=== PATIENT | female | born 1945 | race Caucasian/White ===

== ENCOUNTER → 2019-06-26 09:04 | Outpatient (BNVA) | payer MEDICARE, OTHER, SELFPAY | PROVIDERS: Family Provider Family Medicine; Visit Provider Podiatrist Foot & Ankle Surgery | DX: M79.672 Pain in left foot (principal) | CPT/HCPCS: 73630 ==

== ENCOUNTER 2019-12-06 07:34 | Day surgery (SDC) | payer MEDICARE, OTHER, SELFPAY ==
[2019-12-05 09:50] VITALS: BMI 25.8
[2019-12-06 07:45] VITALS: BP 189/78; PULSE 70; RESP 18; TEMP 36.2; O2SAT 99
[2019-12-06] MEDS: sodium chloride 0.9% 1,000 ML 30 ML IV (07:56)
--- NOTE | 2019-12-06 08:12 | ANES.PREANE2 ---
Pre-Anesthetic Assessment Pre-Anesthetic Assessment: Height/Weight: Height 1.7 m Weight 74.843 kg Temp Pulse Resp BP Pulse Ox 97.2 F L 70 18 189/78 99 12/06/19 07:45 12/06/19 07:45 12/06/19 07:45 12/06/19 07:45 12/06/19 07:45 Preop Diagnosis: Soft tissue mass left foot unknown origin Proposed Procedure: Operation Date: 12/06/19 09:05 Proposed Procedures p Excision of soft tissue mass left foot 47087 M79.89(Left) - Jayjay Gonzalez DPM Was Beta Riana taken within 24 hours: Yes Last intake: Intake Last Liquid Date 12/05/19 Last Liquid Time 21:00 Last Solid Date 12/05/19 Last Solid Time 19:00 Social: Social History: No alcohol and No tobacco Exam: Pre-Anes Outpt Exam: alert, oriented x 3, clear to auscultation bilaterally and regular rate & rhythm Airway: Submandibular: WNL Cervical ROM: WNL MP: 2 Dentition: Full Pulmonary: Pulmonary: None reported CV/HEM: CV/HEM: HTN : : None reported Hepatic: Hepatic: None reported GI: GI: None reported Metabolic: Metabolic: None reported Musc/skel: Musc/skel: None reported Neuropsych: Neuropsych: None reported Anesthetic Plan: ASA status: 2 Anesthesia: MAC Risk of > 500 ml blood loss (7ml/kg in children): No Meds/Allergies Current Medications: Current Medications Generic Name Dose Route Start Last Admin Trade Name Freq PRN Reason Stop Dose Admin Sodium Chloride 1,000 mls @ 30 ml s/hr 12/06/19 07:45 12/06/19 07:56 Sodium Chloride 0.9% IV 12/07/19 07:44 30 mls/hr .Q24H BETTINA Administration PFSH Anesthesia PFSH: Medical History (Updated 11/28/19 @ 08:23 by Jayjay Gonzalez DPM) Hypertension Surgical History History of appendectomy Hx of hysterectomy Hx of tonsillectomy S/P foot surgery, left excision of mass Family History Mother Cancer Sister Cancer Brother Cancer Father Heart disease Denies family history of Diabetes CAD (coronary artery disease) Clotting disorder Dementia Hyperlipidemia Psychiatric illness Chronic kidney disease (CKD) Suicide Anesthesia complication Bleeding disorder Family history of premature coronary artery disease Lung disease Hypertension Stroke Social History Smoking and tobacco status: never smoked Alcohol intake: never Current occupational status: retired Data Anesthesia Cardiac Studies: No Data to Display
--- NOTE | 2019-12-06 08:55 | W.PM.OPSUD ---
Surgery/Procedure H&P Update DATE OF PROCEDURE: December 06, 2019 DATE H&P PERFORMED: 11/28/19 H&P UPDATE INFORMATION: I have reviewed H&P completed within last 30 days, I have examined patient prior to procedure, H&P to be scanned into chart and H&P is in [facility] EMR on date indicated PREOP DIAGNOSIS: Soft tissue mass left foot unknown origin PLANNED PROCEDURE: Operation Date: 12/06/19 09:05 Proposed Procedures p Excision of soft tissue mass left foot 68447 M79.89(Left) - Jayjay Gonzalez DPM
--- NOTE | 2019-12-06 09:40 | PM.OP ---
Operative Report Date of procedure: December 06, 2019 Pre-op Diagnosis: Soft tissue mass left foot unknown origin Post-op diagnosis: same Post-op Findings: See operative report Procedure Done: Excision of soft tissue mass left foot CPT code 58990. Specimens removed/disposition: Soft tissue mass with vascular origin left plantar forefoot Pathology: Soft tissue mass with vascular origin left plantar forefoot Surgeon: Jayjay Gonzalez D.P.M. Stripping Machine Operator: Brittanie Anesthesia: MAC Estimated blood loss: 2 mL Tourniquet time: 13 minutes IV fluids: None Urine output: None Complications: None Findings: See operative report Condition: stable Disposition: PACU Brief History: Ms. Davalos is a pleasant 74-year-old female with a recurrence of a painful soft tissue mass on her left plantar forefoot has been removed years ago while she lived in [place] was a benign lesion per pathology report. It has slowly returned until recently the past few months has enlarged rather quickly and has been painful to walk on she would like to have it removed again. Discussed risks including pain, bleeding, numbness and infection, damage to adjacent soft tissue structures, hypertrophied scar, keloid formation, painful scar, failure to remove mass, recurrence of soft tissue mass, need for further surgical intervention, contracture at adjacent toes and deformity. Patient is agreeable wishes to proceed. Procedure: Under mild sedation the patient was brought to the operating room and placed on the operating table in supine position. A timeout was performed. Anesthesia was then administered by the anesthesia service. Local anesthesia was injected by myself 10 cc of 0.5% Marcaine plain and a left second ray block fashion. Well-padded pneumatic tourniquet was applied to the left ankle. The left lower extremity was then scrubbed, prepped and draped utilizing normal aseptic technique. Left foot was examined a weighted with a Esmarch bandage and the tourniquet inflated to 250 mmHg. Attention was directed to the plantar aspect of the left foot at the lateral border of the second toe where a soft tissue mass was both visualized and palpated. 2 semi-elliptical converging incisions full-thickness with #15 blade was performed excising the mass full-thickness utilizing pickups and a 15 blade which was then passed from the operative field and sent to pathology for review. The mass appeared to have vascular origin potentially consistent with a hemangioma. Further sharp dissection to obtain a clean margin was performed without complication no remaining abnormality or suspect tissue was appreciated. The incision site was flushed with copious amounts of sterile saline solution. Single-layer closure was performed utilizing 4-0 Prolene in simple interrupted technique followed by dressing consisting of Adaptic, sterile 4 x 4, Kerlix Zachary wrap and postop shoe. Tourniquet was deflated and a prompt hyperemic response was noted to the distal digits of the left foot. Patient tolerated the procedure and anesthesia well and was transferred to the PACU with vital signs stable and vascular status intact. Following a period of postoperative monitoring she will be discharged home may be weightbearing with heel touch to the left lower extremity she is to elevate while at rest.
[2019-12-06 09:45] VITALS: BP 142/91; PULSE 66; RESP 18; TEMP 36.5; O2SAT 93
[2019-12-06 10:02] VITALS: BP 142/91; PULSE 66; RESP 18; TEMP 36.5; O2SAT 93
[2019-12-06 10:21] VITALS: BP 156/93; PULSE 63; RESP 18; O2SAT 95
--- NOTE | 2019-12-06 11:53 | PM.PACU ---
PACU note PACU note: VSS, good pain control. Post-Anesthesia Exam: awake Disposition: discharged
== END 2019-12-06 10:25 | disposition home or self-care (01) ==
PROVIDERS: PCP Family Medicine; Visit Provider Podiatrist Foot & Ankle Surgery
PROC: (CPT 11422; principal; 2019-12-06 08:55)
DX: D23.72 Other benign neoplasm of skin of left lower limb, including hip (principal); I10 Essential (primary) hypertension
CPT/HCPCS: 11422; 12345; 88309; C9290; J0690; J2704; J3010; J3490; J7030; L3260

== ENCOUNTER 2021-02-02 15:22 | Outpatient (CLI) | payer MEDICARE, BC, SELFPAY ==
--- NOTE | 2021-02-02 15:37 | XR_ITS ---
WS: [id number] HIP WITH PELVIS LEFT TECHNIQUE: 3 views of the left hip with pelvis CLINICAL INFORMATION: LEFT HIP PAIN COMPARISON: None. FINDINGS: Moderate degenerative arthritis left hip with joint space narrowing. Normal acetabulum. Normal femora l neck. Pubic rami appear normal. Degenerative arthritis lower lumbar spine and sacroiliac joints. No acute fractures. XR/XR hip LT 2-3V wo/w pel* [id number] IMPRESSION: Moderate degenerative arthritis left hip. No acute fractures. Tonnis classification: grade 2: small cysts in femoral head/acetabulum or moder ate joint space narrowing or moderate loss of head sphericity
--- NOTE | 2021-02-02 15:37 | XR_ITS ---
WS: [id number] ANKLE LEFT TECHNIQUE: 2 views of the left ankle CLINICAL INFORMATION: LEFT ANKLE PAIN COMPARISON: None. FINDINGS: Normal ankle mortise. Talar dome is normal. Achilles enthesophyte. No visualized fractures. Normal vi sualized soft tissues. XR/XR ankle LT 2V [id number] IMPRESSION: No acute fractures
== END 2021-02-02 15:23 | disposition home or self-care (01) ==
LOC: RAD 15:33
PROVIDERS: PCP Family Medicine; Visit Provider Family Medicine
DX: M25.572 Pain in left ankle and joints of left foot (principal); M16.12 Unilateral primary osteoarthritis, left hip
CPT/HCPCS: 73502; 73600

== ENCOUNTER 2021-02-24 14:12 | Outpatient (CLI) | payer MEDICARE, BC, SELFPAY ==
--- NOTE | 2021-02-24 14:32 | XR_ITS ---
WS: [id number] SCREENING DEXA SCAN [employer] CLINICAL INFORMATION: OSTEOPOROSIS, WELL ADULT EXAM COMPARISON: 2016 FINDINGS: The L1-L4 bone mineral density measures 1.029 g/cm2. This corresponds to a T score score of -1.3 and Z score of 0.4. Left femoral neck bone mineral density measures 0.731 g/cm2. This corresponds to a T score of -2.2 an d Z score of -0.5. Right femoral neck bone mineral density measures 0.736 g/cm2. This corresponds to a T score -2.2of an d Z score of -0.4. Mean femoral neck bone mineral density measures 0.733 g/cm2. This corresponds to a T score of -2.2 an d Z score of -0.5. XR/XR DEXA axial skeleton* [id number] IMPRESSION: Osteopenia Patient's FRAX calculated 10 year probability for major osteoporotic fracture i s 20.4 % and osteoporotic hip fracture is 7.5%.
== END 2021-02-24 14:13 | disposition home or self-care (01) ==
PROVIDERS: PCP Family Medicine; Visit Provider Family Medicine
DX: M81.0 Age-related osteoporosis without current pathological fracture (principal); Z00.00 Encounter for general adult medical examination without abnormal findings; M85.88 Other specified disorders of bone density and structure, other site
CPT/HCPCS: 77080

== ENCOUNTER 2021-04-20 08:39 | Outpatient (CLI) | payer MEDICARE, BC, SELFPAY ==
--- NOTE | 2021-04-20 08:46 | MM_ITS ---
WS: [id number] BILATERAL DIGITAL SCREENING MAMMOGRAPHY WITH CAD CLINICAL INFORMATION: SCREENING HISTORY: Screening mammogram. No current complaints. COMPARISON: TECHNIQUE: Bilateral CC and MLO views. FINDINGS: Scattered fibroglandular densities bilaterally. Stable punctate and lucent calcifications. Secretory calcifications. No suspicious focal mass, asymmetry, calcifications, or architectural distortion. No evidence of malignancy. MM/[place] [id number] IMPRESSION: BI-RADS: 2-Benign FOLLOW UP: 1 Year Follow-up Recommend return to annual screening mammography.
== END 2021-04-20 08:40 | disposition home or self-care (01) ==
LOC: RADSHAW 08:44
PROVIDERS: PCP Family Medicine; Visit Provider Family Medicine
DX: Z12.31 Encounter for screening mammogram for malignant neoplasm of breast (principal)
CPT/HCPCS: 77067

== ENCOUNTER 2021-05-24 14:46 | Outpatient (CLI) | payer MEDICARE, BC, SELFPAY ==
--- NOTE | 2021-05-24 14:54 | XR_ITS ---
WS: [id number] XR hip LT 2-3V wo/w pel* [id number] REASON FOR EXAM: LEFT HIP PAIN FINDINGS: No fracture or focal bone lesion. Mild narrowing of the left hip joint. Subchondral sclerosis and marginal osteophyte formation in the acetabulum. No change in the appearance of the hip compared to 02/02/2021. XR/XR hip LT 2-3V wo/w pel* [id number] IMPRESSION: Moderate osteoarthritis in the left hip relatively unchanged compared to 2020.
--- NOTE | 2021-05-24 14:54 | XR_ITS ---
WS: [id number] XR lumbar spine 2-3V* [id number] REASON FOR EXAM: L HIP PAIN FINDINGS: Mild rotatory scoliosis convex left. Mild endplate compression deformities of L3 and L4. Significant narrowing of the disc spaces at L1-L2, L2-L3, and L5-S1. 4 to 5 mm of anterolisthesis of L3 in relation to L2. Moderate degenerative changes in the L4-L5 and L5-S1 facet joints. XR/XR lumbar spine 2-3V* [id number] IMPRESSION: Degenerative spondylosis as above.
== END 2021-05-24 14:47 | disposition home or self-care (01) ==
LOC: RAD 14:50
PROVIDERS: PCP Family Medicine; Visit Provider Family Medicine
DX: M47.816 Spondylosis without myelopathy or radiculopathy, lumbar region (principal); M16.12 Unilateral primary osteoarthritis, left hip
CPT/HCPCS: 72100; 73502

== ENCOUNTER → 2021-11-11 11:28 | Outpatient (BNVA) | payer MEDICARE, BC, SELFPAY | PROVIDERS: PCP Family Medicine; Visit Provider Family Medicine | DX: J06.9 Acute upper respiratory infection, unspecified (principal); Z20.822 Contact with and (suspected) exposure to COVID-19 | CPT/HCPCS: 87426; 87635 ==

== ENCOUNTER 2022-09-02 18:33 | Emergency (ER) | payer MEDICARE, SELFPAY ==
[2022-09-02 18:39] VITALS: BP 181/83; PULSE 76; RESP 16; TEMP 36.4; O2SAT 93; BMI 21.9
--- NOTE | 2022-09-02 18:43 | ECG_ITS ---
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 Measurements Intervals [place] Rate: 83 P: 63 SC: 149 QRS: 44 QRSD: 80 T: 62 QT: 348 QTc: 411 Interpretive Statements SINUS RHYTHM No previous ECG available for comparison Electronically Signed On 09-03-2022 5:56:13 CDT by Elvira Heath M.D. [email or web address]
--- NOTE | 2022-09-02 20:58 | XRR_ITS ---
PROCEDURE INFORMATION: Exam: XR Chest Exam date and time: 09/02/2022 9:10 PM Age: 77 years old Clinical indication: Pain; Chest pressure; Additional info: Cp TECHNIQUE: Imaging protocol: Radiologic exam of the chest. Views: 1 view. COMPARISON: No relevant prior studies available. FINDINGS: Lungs: Unremarkable. No consolidation. Pleural spaces: Unremarkable. No pleural effusion. No pneumothorax. Heart/Mediastinum: Unremarkable. No cardiomegaly. Bones/joints: Unremarkable. XR/XR chest 1V portable [id number] IMPRESSION: No acute findings.
--- NOTE | 2022-09-02 21:04 | USR_ITS ---
PROCEDURE INFORMATION: Exam: US Abdomen, Limited; Right Upper Quadrant Exam date and time: 09/02/2022 9:37 PM Age: 77 years old Clinical indication: Abdominal pain; Acute; Additional info: Ruq pain TECHNIQUE: Imaging protocol: Real time ultrasound of the abdomen with image documentation. Limited exam focused on the right upper quadrant. COMPARISON: No relevant prior studies available. FINDINGS: Liver: Hepatic steatosis. Gallbladder: Gallbladder sludge, negative for cholecystitis. Biliary ducts: Normal. No stones. No dilation. Pancreas: Visualized pancreas is unremarkable. Right kidney: Normal. No mass. No hydronephrosis. US/US gall bladder [id number] IMPRESSION: 1. Gallbladder sludge, negative for cholecystitis. 2. Hepatic steatosis.
[2022-09-02 21:13] LABS: Basophils # 0.1 10^3/uL (0.0-0.1); Basophils % 0.5 %; Eosinophils # 0.2 10^3/uL (0.0-0.8); Eosinophils % 1.7 %; Hematocrit 43.2 % (37.0-47.0); Hemoglobin 13.6 g/dL (11.5-15.3); Lymphocytes # 1.2 10^3/uL (0.8-4.8); Mean Corpuscular HGB Conc 31.5 g/dL (30.0-36.0); Mean Corpuscular Hemoglobin 28.2 pg (28.0-34.0); Mean Corpuscular Volume 89.4 fl (81-99); Mean Platelet Volume 10.6 fL (7.4-10.4); Monocytes # 0.6 10^3/uL (0.2-0.9); Neutrophils % 79.5 %; Nucleated Red Blood Cells % 0 %; Platelet Count 272 10^3/cmm (130-400); Red Blood Count 4.83 10^6/uL (4.1-5.3); Red Cell Distribution Width 13.1 % (12.1-15.1); White Blood Count 10.1 10^3/uL (4.0-10.0)
[2022-09-02 21:14] VITALS: RESP 16
[2022-09-02] MEDS: ondansetron 2 mg/ML SDV 2 mL 4 MG IVP (21:14)
[2022-09-02] MEDS: morphine 4 mg/mL SDV 1 mL IVP (21:14)
[2022-09-02] MEDS: ketorolac 30 mg/mL INJ 15 MG IVP (21:15)
[2022-09-02 21:36] VITALS: BP 151/73; PULSE 80; RESP 16; O2SAT 96
[2022-09-02 21:36] LABS: Alanine Aminotransferase 11 U/L (0-33); Albumin Level 4.3 g/dL (3.5-5.2); Alkaline Phosphatase 75 U/L (35-105); Anion Gap 13.7 (5-19); Aspartate Amino Transferase 16 U/L (0-32); Blood Urea Nitrogen 16 mg/dL (8-23); Calcium 9.1 mg/dL (8.5-10.5); Carbon Dioxide 26 mmol/L (22-29); Chloride 105 mmol/L (98-107); Globulin 2.1 g/dL (1.3-4.6); Glucose 104 mg/dL (65-115); Lipase 20 U/L (13-60); Osmolality Calculated 293 mOsm/kg (285-295); Potassium 3.7 mmol/L (3.5-5.1); Sodium 141 mmol/L (136-145); Total Bilirubin 0.3 mg/dL (0.15-1.2); Total Protein 6.4 g/dL (6.6-8.7)
--- NOTE | 2022-09-02 22:01 | ED_ITS ---
HPI - Extremity Problem General: Chief complaint: Extremity Problem,Nontraumatic Stated complaint: abdomen pain, back shoulder blade pain Time Seen by Provider: 09/02/22 20:41 Source: patient and family History of Present Illness: 77-year-old female presenting with right-sided flank and back pain. It radiates to her suprapubic pelvis. Family notes the pains been going on for days. No vomiting. She has been nauseated. No fever. Pain also radiates to her back between her shoulder blades. She has not been short of breath. No fever. MD Complaint: other Onset (ago): day(s) (4) Pain Consistency: constant Location: other (Right flank) Associated symptoms: Deny chest pain, fever(s), rash or short of breath Review of Systems Const: Denies: fever(s) ENMT: Denies: throat pain Card: Denies: chest pain or palpitations Resp: Denies: dyspnea, productive cough or non-productive cough GI: Reports: abdominal pain and nausea; Denies: vomiting : Reports: flank pain; Denies: difficulty voiding or dysuria Musc: Reports: back pain Skin/Breast: Denies: rash PFSH ED PFSH: Medical History Anxiety Depression Hypertension Surgical History History of appendectomy Hx of hysterectomy Hx of tonsillectomy S/P foot surgery, left excision of mass Family History Mother Cancer Sister Cancer Brother Cancer Father Heart disease Denies family history of Diabetes CAD (coronary artery disease) Clotting disorder Dementia Hyperlipidemia Psychiatric illness Chronic kidney disease (CKD) Suicide Anesthesia complication Bleeding disorder Family history of premature coronary artery disease Lung disease Hypertension Stroke Social History Smoking and tobacco status: never smoked Alcohol intake: never Substance/Drug Use: never Current occupational status: retired Physical Exam Const: COMMON NORMALS: no acute distress and alert GENERAL APPEARANCE: cooperative and frail appearing (Mildly); not ill appearing ORIENTATION/CONSCIOUSNESS: Yes oriented to person and Yes o riented to place HENMT: COMMON NORMALS: normocephalic, atraumatic and Normal external nose present HEAD & SCALP: normocephalic and atraumatic FACE & SINUS: normal facial exam and face symmetric NOSE: Normal external nose present Eye: COMMON NORMALS: Equal, round and reactive pupils present and EOMs intact bilaterally PUPIL: Yes Equal, round and reactive pupils present Neck/C-Spine: GENERAL: Yes trachea midline Chest: CHEST: Yes Symmetrical chest wall rise Resp: COMMON NORMALS: normal respiratory effort, No retractions, No use of accessory muscles and clear to auscultation bilaterally AUSCULTATION: clear to auscultation bilaterally Cardio: COMMON NORMALS: regular rate and regular rhythm RATE: regular rate RHYTHM: regular rhythm GI: COMMON NORMALS: Normal to inspection, nondistended, normoactive bowel sounds present PALPATION: Yes Tenderness to palpation present (GI) Details: RUQ Extremity: COMMON NORMALS: no pedal edema Neuro: LATOYA COMA SCALE: document GCS findings SENSORIUM/ORIENTATION: Yes alert, Yes oriented to person and Yes oriented to place SENSORY EXAM: Yes extremities (intact) Psych: COMMON NORMALS: speech normal SPEECH: Yes normal speech Skin: COMMON NORMALS: no rashes or lesions noted GENERAL SKIN EXAM: no rashes or lesions noted Course Vital Signs: Vital signs: Vital Signs Temperature 97.6 F 09/02/22 23:51 Pulse Rate 83 09/02/22 23:51 Respiratory Rate 16 09/02/22 23:51 Blood Pressure 151/73 09/02/22 23:51 Pulse Oximetry 95 09/02/22 23:51 Oxygen Delivery Me thod Room Air 09/02/22 18:39 MDM - Extremity (Nontraumatic) Medical Decision Making Vitals are stable. She is afebrile. White blood cell count is 10. BMP is not remarkable. CBC otherwise not remarkable. C-reactive protein is 3. Liver enzymes are normal including a total bili of 0.3. Urinalysis shows 2+ leukocyte Estrace but without pyuria or significant hematuria. CT shows cholelithiasis. Gallbladder ultrasound is negative for cholecystitis or biliary dilatation. Patient is tender to her right upper quadrant, consistent with biliary colic. She will be treated for this. Close outpatient follow-up. They know to return for worsening symptoms. Lab Data 09/02/22 21:04 09/02/22 21:04 Radiology Impressions Chest X-Ray 09/02/22 20:58 IMPRESSION: No acute findings. Gallbladder Ultrasound 09/02/22 21:04 IMPRESSION: 1. Gallbladder sludge, negative for cholecystitis. 2. Hepatic steatosis. Abdomen/Pelvis CT 09/02/22 22:12 IMPRESSION: 1. Negative for acute inflammatory process in the abdomen or pelvis. 2. Bibasilar atelectasis versus infiltrate. 3. Hepatic steatosis. 4. Left hepatic lobe cyst. 5. Cholelithiasis. 6. Right ovary 3.7 cm cyst, likely follicular in nature. 7. Diverticulosis without diverticulitis. Laboratory Results WBC 10.1 10^3/uL (4.0-10.0) H 09/02/22 21:04 RBC 4.83 10^6/uL (4.1-5.3) 09/02/22 21:04 Hgb 13.6 g/dL (11.5-15.3) 09/02/22 21:04 Hct 43.2 % (37.0-47.0) 09/02/22 21:04 MCV 89.4 fl (81-99) 09/02/22 21:04 MCH 28.2 pg (28.0-34.0) 09/02/22 21:04 MCHC 31.5 g/dL (30.0-36.0) 09/02/22 21:04 RDW 13.1 % (12.1-15.1) 09/02/22 21:04 Plt Count 272 10^3/cmm (130-400) 09/02/22 21:04 MPV 10.6 fL (7.4-10.4) H 09/02/22 21:04 Neut % (Auto) 79.5 % 09/02/22 21:04 Lymph % (Auto) 12.0 % 09/02/22 21:04 [place] % (Auto) 6.0 % 09/02/22 21:04 Eos % (Auto) 1.7 % 09/02/22 21:04 Baso % (Auto) 0.5 % 09/02/22 21:04 Neut # (Auto) 8.00 10^3/uL (1.8-7.7) H 09/02/22 21:04 Lymph # (Auto) 1.2 10^3/uL (0.8-4.8) 09/02/22 21:04 [place] # (Auto) 0.6 10^3/uL (0.2-0.9) 09/02/22 21:04 Eos # (Auto) 0.2 10^3/uL (0.0-0.8) 09/02/22 21:04 Baso # (Auto) 0.1 10^3/uL (0.0-0.1) 09/02/22 21:04 Nucleated RBC % (auto) 0 % 09/02/22 21:04 Nucleated RBCs # 0.0 /100WBC 09/02/22 21:04 Sodium 141 mmol/L (136-145) 09/02/22 21:04 Potassium 3.7 mmol/L (3.5-5.1) 09/02/22 21:04 Chloride 105 mmol/L (98-107) 09/02/22 21:04 Carbon Dioxide 26 mmol/L (22-29) 09/02/22 21:04 Anion Gap 13.7 (5-19) 09/02/22 21:04 BUN 16 mg/dL (8-23) 09/02/22 21:04 Creatinine 0.5 mg/dL (0.5-0.9) 09/02/22 21:04 GFR Calculation Not Reportable 09/02/22 21:04 Glucose 104 mg/dL (65-115) 09/02/22 21:04 Calculated Osmolality 293 mOsm/kg (285-295) 09/02/22 21:04 Calcium 9.1 mg/dL (8.5-10.5) 09/02/22 21:04 Total Bilirubin 0.3 mg/dL (0.15-1.2) 09/02/22 21:04 AST 16 U/L (0-32) 09/02/22 21:04 ALT 11 U/L (0-33) 09/02/22 21:04 Alkaline Phosphatase 75 U/L (35-105) 09/02/22 21:04 Troponin T Baseline < 6 ng/L (0-10) 09/02/22 21:04 C-Reactive Protein 3.0 mg/L (0.0-4.9) 09/02/22 21:04 Total Protein 6.4 g/dL (6.6-8.7) L 09/02/22 21:04 Albumin 4.3 g/dL (3.5-5.2) 09/02/22 21:04 Globulin 2.1 g/dL (1.3-4.6) 09/02/22 21:04 Lipase 20 U/L (13-60) 09/02/22 21:04 Urine Color Yellow (Yellow) 09/02/22 21:33 Urine Appearance Hazy (CLEAR) A 09/02/22 21:33 Urine pH 6.5 (5-7) 09/02/22 21:33 Ur Specific [place] 1.020 (1.005-1.030) 09/02/22 21:33 Urine Protein Neg (Negative) 09/02/22 21:33 Urine Glucose (UA) Norm (Normal) 09/02/22 21:33 Urine Ketones Negative (Negative) 09/02/22 21:33 Urine Blood Trace (Negative) H 09/02/22 21:33 Urine Nitrate Negative (Negative) 09/02/22 21:33 Urine Bilirubin Neg (Negative) 09/02/22 21:33 Urine Urobilinogen Norm mg/dL (Negative) 09/02/22 21:33 Ur Leukocyte Esterase 2+ (Negative) H 09/02/22 21:33 Urine RBC 0-4 /hpf (0-2) H 09/02/22 21:33 Urine WBC 0-4 /hpf (0-5) H 09/02/22 21:33 Ur Squamous Epith Cells 0-4 /hpf (0-5) H 09/02/22 21:33 Amorphous Sediment Not Reportable 09/02/22 21:33 Urine Bacteria 2+ /hpf (NONE) H 09/02/22 21:33 Discharge Plan Discharge Patient Disposition: Home Clinical Impression: Biliary colic Condition: Stable Prescriptions: New ketorolac 10 mg tablet 10 mg PO TID PRN (Reason: pain) Qty: 10 0RF No Action metoprolol succinate 50 mg tablet extended release 24 hr 50 mg PO DAILY metoprolol succinate 25 mg tablet extended release 24 hr 12.5 mg PO .hs escitalopram oxalate [Lexapro] 10 mg tablet 10 mg PO DAILY Qty: 30 11RF [place] 5-325 mg tablet 1 tab PO Q4H Qty: 20 0RF Discharge Orders: Discharge ED (Routine); Ordered 09/02/22 Ordered By: Samir Cazares Referrals: Jose Eduardo Reveles MD [Primary Care Provider] - 1-3 days Patient Instructions: Biliary Colic (ED), Abdominal Pain (ED), Opioid Safety, Pain Management Activity Restrictions/Additional Instructions: Take medication prescribed scheduled for the next 24 hours. Follow a liquid diet for 24 hours, then slowly add back in solid food. Return for fever greater than 100, vomiting liquids or medications, worsening pain despite treatment, other concerning symptoms. 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
[2022-09-02 22:07] LABS: Add Urine Microscopic? YES; Bilirubin Urine Neg (Negative); Blood Urine Trace (Negative); Glucose Urine UA Norm (Normal); Ketones Urine Negative (Negative); Leukocyte Esterase Urine 2+ (Negative); Nitrate Urine Negative (Negative); Protein Urine Neg (Negative); Urine Appearance Hazy (CLEAR); Urine Color Yellow (Yellow); Urobilinogen Urine Norm (Negative); pH Urine 6.5 (5-7)
--- NOTE | 2022-09-02 22:12 | CTR_ITS ---
PROCEDURE INFORMATION: Exam: CT Abdomen And Pelvis With Contrast Exam date and time: 09/02/2022 10:26 PM Age: 77 years old Clinical indication: Abdominal pain; Flank; Right; Prior surgery; Surgery date: 6+ months; Surgery type: Complete hysterectomy; Additional info: Right flank pain TECHNIQUE: Imaging protocol: Computed tomography of the abdomen and pelvis with contrast. Radiation optimization: All CT scans at this facility use at least one of these dose optimization techniques: automated exposure control; mA and/or kV adjustment per patient size (includes targeted exams where dose is matched to clinical indication); or iterative reconstruction. Contrast material: OMNI 350; Contrast volume: 100 ml; Contrast route: INTRAVENOUS (IV); REPORTING DATA: Count of CT and Cardiac NM exams in prior 12 months: This patient has received 0 known CTs and 0 known cardiac nuclear medicine studies in the 12 months prior to the current study. COMPARISON: CR XR hip LT 2-3V wo/w pel* [id number] 05/24/2021 3:25 PM RADIATION DOSE METRICS: Total DLP (mGy-cm): 414.92 FINDINGS: Lungs: Bibasilar atelectasis versus infiltrate. Liver: Hepatic steatosis. Left hepatic lobe cyst. Gallbladder and bile ducts: Cholelithiasis. Pancreas: Normal. No ductal dilation. Spleen: Normal. No splenomegaly. Adrenal glands: Normal. No mass. Kidneys and ureters: Normal. No hydronephrosis. Stomach and bowel: Diverticulosis without diverticulitis. Appendix: No evidence of appendicitis. Intraperitoneal space: Unremarkable. No free air. No significant fluid collection. Vasculature: Unremarkable. No abdominal aortic aneurysm. Lymph nodes: Unremarkable. No enlarged lymph nodes. Urinary bladder: Unremarkable as visualized. Reproductive: Right ovary 3.7 cm cyst, likely follicular in nature. Bones/joints: Unremarkable. No acute fracture. Soft tissues: Unremarkable. CT/CT abdomen pelvis w con* [id number] IMPRESSION: 1. Negative for acute inflammatory process in the abdomen or pelvis. 2. Bibasilar atelectasis versus infiltrate. 3. Hepatic steatosis. 4. Left hepatic lobe cyst. 5. Cholelithiasis. 6. Right ovary 3.7 cm cyst, likely follicular in nature. 7. Diverticulosis without diverticulitis.
[2022-09-02 22:13] LABS: Troponin(5th) Baseline < 6 ng/L (0-10)
[2022-09-02 22:28] LABS: RBC Urine 0-4 /hpf (0-2); Squamous Epithelial Cell Urine 0-4 /hpf (0-5); WBC Urine 0-4 /hpf (0-5)
[2022-09-02 22:29] LABS: Add Urine Culture? Yes; Bacteria Urine 2+ /hpf
[2022-09-02] MEDS: iohexol 350 mg/mL 500 mL Btl (per mL) IV (22:30)
[2022-09-02 22:41] VITALS: PULSE 83; RESP 16; O2SAT 95
[2022-09-02 23:51] VITALS: BP 151/73; PULSE 83; RESP 16; TEMP 36.4; O2SAT 95
== END 2022-09-02 23:52 | disposition home or self-care (01) ==
PROVIDERS: Emergency Provider Emergency Medicine; PCP Family Medicine
DX: K80.20 Calculus of gallbladder without cholecystitis without obstruction (principal); I10 Essential (primary) hypertension
CPT/HCPCS: 71045; 74177; 76705; 80053; 81001; 83690; 84484; 85025; 86140; 87086; 93005; 96374; 96375; 99285; J1885; J2270; J2405; Q9967

== ENCOUNTER 2023-09-30 18:21 | Outpatient (CLI) | payer MEDICARE, SELFPAY ==
[2023-09-30 18:39] LABS: Specific Gravity, Urine 1.005 (1.005-1.030); Urine Appearance Cloudy (CLEAR); Urine Color Yellow (Yellow); pH Urine 7 (5-7)
[2023-09-30 18:40] LABS: Add Urine Microscopic? YES; Bacteria Urine 1+ /hpf; Bilirubin Urine Neg (Negative); Blood Urine 2+ (Negative); Glucose Urine UA Norm (Normal); Ketones Urine 1+ (Negative); Leukocyte Esterase Urine 2+ (Negative); Mucus Urine TRACE /hpf; Nitrate Urine Negative (Negative); Protein Urine Neg (Negative); RBC Urine 0-4 /hpf (0-2); Urobilinogen Urine Neg (Negative); WBC Urine 15-25 /hpf (0-5)
== END 2023-09-30 18:22 | disposition home or self-care (01) ==
PROVIDERS: PCP Family Medicine; Visit Provider Family Medicine
DX: N39.0 Urinary tract infection, site not specified (principal)
CPT/HCPCS: 81001; 87086

== ENCOUNTER 2024-02-03 13:04 | Outpatient (CLI) | payer MEDICARE, SELFPAY ==
[2024-02-03 13:21] LABS: Bilirubin Urine Negative (Negative); Blood Urine Negative (Negative); Glucose Urine UA Negative (Normal); Ketones Urine Negative (Negative); Leukocyte Esterase Urine Negative (Negative); Nitrate Urine Negative (Negative); Protein Urine Negative (Negative); Specific Gravity, Urine 1.006 (1.005-1.030); Urine Appearance Clear (CLEAR); Urine Color Yellow (Yellow); Urobilinogen Urine 0.2 mg/dL (Negative); pH Urine 7.5 (5-7)
[2024-02-03 13:26] LABS: Add Urine Microscopic? YES; Bacteria Urine None Seen /hpf; Hyaline Casts Urine 0-4 /lpf; RBC Urine 0-2 /hpf (0-2); Squamous Epithelial Cell Urine 0-5 /hpf (0-5); WBC Urine 0-5 /hpf (0-5)
== END 2024-02-03 13:05 | disposition home or self-care (01) ==
LOC: LAB 13:07
PROVIDERS: PCP Family Medicine; Visit Provider Family Medicine
DX: N39.0 Urinary tract infection, site not specified (principal)
CPT/HCPCS: 81001; 87086

== ENCOUNTER 2024-04-04 09:23 | Outpatient (CLI) | payer MEDICARE, SELFPAY ==
[2024-04-04 09:42] LABS: Bilirubin Urine Negative (Negative); Blood Urine Negative (Negative); Glucose Urine UA Negative (Normal); Ketones Urine Negative (Negative); Leukocyte Esterase Urine Negative (Negative); Nitrate Urine Negative (Negative); Protein Urine Negative (Negative); Specific Gravity, Urine 1.005 (1.005-1.030); Urine Appearance Clear (CLEAR); Urine Color Yellow (Yellow); Urobilinogen Urine 0.2 mg/dL (Negative)
[2024-04-04 09:48] LABS: Add Urine Microscopic? YES; Bacteria Urine None Seen /hpf; Hyaline Casts Urine 0-4 /lpf; RBC Urine 0-2 /hpf (0-2); Squamous Epithelial Cell Urine 0-5 /hpf (0-5); WBC Urine 0-5 /hpf (0-5)
== END 2024-04-04 09:24 | disposition home or self-care (01) ==
LOC: LAB 09:25
PROVIDERS: PCP Family Medicine; Visit Provider Family Medicine
DX: N39.0 Urinary tract infection, site not specified (principal)
CPT/HCPCS: 81001; 87086

== ENCOUNTER 2024-07-28 08:51 | Outpatient (CLI) | payer MEDICARE, SELFPAY ==
[2024-07-28 09:30] LABS: Basophils # 0.1 10^3/uL (0.0-0.1); Basophils % 1.2 %; Eosinophils # 0.3 10^3/uL (0.0-0.8); Eosinophils % 5.2 %; Hematocrit 40.7 % (36-47); Lymphocytes # 1.3 10^3/uL (0.8-4.8); Lymphocytes % 22.8 %; Mean Corpuscular HGB Conc 31.7 g/dL (30-55); Mean Corpuscular Hemoglobin 28.4 pg (27-33); Mean Corpuscular Volume 89.6 fl (85-98); Mean Platelet Volume 11.1 fL (7.4-10.4); Monocytes # 0.5 10^3/uL (0.2-0.9); Monocytes % 8.7 %; Neutrophils # 3.57 10^3/uL (1.8-7.7); Neutrophils % 61.8 %; Nucleated Red Blood Cells % 0 %; Platelet Count 236 10^3/cmm (157-399); Red Blood Count 4.54 10^6/uL (3.85-5.65); Red Cell Distribution Width 13.2 % (12.1-15.1); White Blood Count 5.78 10^3/uL (3.29-11.43)
[2024-07-28 09:51] LABS: Alanine Aminotransferase 9 U/L (0-33); Albumin Level 3.7 g/dL (3.5-5.2); Alkaline Phosphatase 83 U/L (35-105); Anion Gap 12.1 (5-19); Aspartate Amino Transferase 18 U/L (0-32); Blood Urea Nitrogen 15 mg/dL (8-23); Calcium 8.7 mg/dL (8.5-10.5); Carbon Dioxide 27 mmol/L (22-29); Chloride 107 mmol/L (98-107); Chol HDL Ratio 4.63 mg/dL (0.0-4.40); Cholesterol 236 mg/dL (0-200); Globulin 2.4 g/dL (1.3-4.6); Glucose 95 mg/dL (65-115); HDL Cholesterol 51 mg/dL (60-100); LDL Cholesterol Calculated 157 mg/dL (50-129); LDL HDL Ratio 3.08 RATIO (0.00-3.22); Osmolality Calculated 295 mOsm/kg (285-295); Potassium 4.1 mmol/L (3.5-5.1); Sodium 142 mmol/L (136-145); Total Bilirubin 0.5 mg/dL (0.15-1.2); Total Protein 6.1 g/dL (6.6-8.7); Triglycerides 141 mg/dL (0-150)
== END 2024-07-28 08:52 | disposition home or self-care (01) ==
LOC: LAB 08:56
PROVIDERS: PCP Family Medicine; Visit Provider Family Medicine
DX: I10 Essential (primary) hypertension (principal); E11.9 Type 2 diabetes mellitus without complications
CPT/HCPCS: 80053; 80061; 85025

== ENCOUNTER 2024-08-11 14:22 | Outpatient (CLI) | payer MEDICARE, SELFPAY ==
[2024-08-11 14:58] LABS: Bacteria Urine None Seen /hpf; Hyaline Casts Urine 0-4 /lpf; RBC Urine 0-2 /hpf (0-2); Squamous Epithelial Cell Urine 0-5 /hpf (0-5); WBC Urine 0-5 /hpf (0-5)
[2024-08-11 15:14] LABS: Urine Color Yellow (Yellow)
[2024-08-11 15:15] LABS: Add Urine Microscopic? YES; Bilirubin Urine Neg (Negative); Blood Urine Neg (Negative); Glucose Urine UA Norm (Normal); Ketones Urine Negative (Negative); Leukocyte Esterase Urine Trace (Negative); Nitrate Urine Negative (Negative); Protein Urine Neg (Negative); Specific Gravity, Urine 1.012 (1.005-1.030); Urine Appearance Clear (CLEAR); pH Urine 7 (5-7)
[2024-08-11 15:16] LABS: Add Urine Culture? No
== END 2024-08-11 14:23 | disposition home or self-care (01) ==
LOC: LAB 14:24
PROVIDERS: PCP Family Medicine; Visit Provider Family Medicine
DX: R44.1 Visual hallucinations (principal); N39.0 Urinary tract infection, site not specified; R44.0 Auditory hallucinations
CPT/HCPCS: 81001; 87086

== ENCOUNTER 2025-01-16 10:29 | Emergency (ER) | payer MEDICARE, SELFPAY ==
--- NOTE | 2025-01-16 10:25 | ECG_ITS ---
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 Measurements Intervals [place] Rate: 57 P: 49 [place]: 160 QRS: -6 QRSD: 86 T: 14 QT: 436 QTc: 427 Interpretive Statements SINUS BRADYCARDIA Compared to ECG 09/02/2022 18:46:59 Sinus rhythm no longer present Electronically Signed On 01-16-2025 18:48:58 CDT by Aman Yates M.D. [email or web address]
--- NOTE | 2025-01-16 10:25 | CTR_ITS ---
PROCEDURE INFORMATION: Exam: CT Head Without Contrast Exam date and time: 01/16/2025 10:41 AM Age: 79 years old Clinical indication: Injury or trauma; Fall; Blunt trauma (contusions or hematomas); Without loss of consciousness; Additional info: Fall. PT has hematoma to left parietal region TECHNIQUE: Imaging protocol: Computed tomography of the head without contrast. Radiation optimization: All CT scans at this facility use at least one of these dose optimization techniques: automated exposure control; mA and/or kV adjustment per patient size (includes targeted exams where dose is matched to clinical indication); or iterative reconstruction. COMPARISON: No prior relevant exam for comparison RADIATION DOSE METRICS: Total DLP (mGy-cm): 1150.38 FINDINGS: Brain: . No acute intracranial hemorrhage or abnormal intracranial mass effect is identified. Mild chronic appearing small-vessel ischemic changes are seen in both cerebral hemispheres and likely within the henry. No subdural collections are identified. Cerebral ventricles: Size within normal range for age. No midline shift. Paranasal sinuses: Visualized portions of paranasal sinuses are well aerated. Mastoid air cells: Visualized portions of mastoid sinuses are not opacified. Bones: No acute fracture of the cranium identified.. Soft tissues: There is a prominent left parietal scalp hematoma. CT/CT head wo con* [id number] IMPRESSION: No acute intracranial hemorrhage or mass effect.
[2025-01-16 10:29] VITALS: BMI 23.5
[2025-01-16 10:35] VITALS: BP 166/83; PULSE 59; RESP 16; TEMP 36.4; O2SAT 92
--- OUTSIDE RECORDS SUMMARY | 2025-01-16 10:35 | XMS_ITS | Encounter Summary ---
Author Organization [facility] Address [address] [place] [address] Care Team Providers Care Clinical Science Liaison Name Role Phone Unavailable Primary Care Provider Unavailabl e Encounter Details Date Type Department Care Team (Latest Contact Info) Description 06/27/1997 Outpatient Historical [facility] Breast [place] [facility] Persaud Karlee [address] 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
--- OUTSIDE RECORDS SUMMARY | 2025-01-16 10:35 | XMS_ITS | Clinical Summary ---
Author Organization [email or web address] Address [address] [place]: Epic Prelude ADT MESHA [place] [address] Care Team Providers Care Ict Systems Test Engineer Name Role Phone Unavailable Primary Care Provider Unavailabl e Social History Tobacco Use Types Packs/Day Years Used Date Smoking Tobacco: Never Assessed Comments Unknown Sex and Gender Information Value Date Recorded Sex Assigned at Not on file Legal Sex Female 6:38 AM MELT SUPERINTENDANT Gender Identity Not on file Sexual Orientation Not on file Plan of Treatment Health Maintenance Due Date Last Done Comments DTAP/TDAP/TD VACCINES (1 - Tdap) 02/21/1964 PNEUMOCOCCAL VACCINE 50+ YEARS (1 of 1 - PCV) 02/20/19 95 ZOSTER VACCINE (1 of 2) 1995 OSTEOPOROSIS SCREENING 2010 RSV VACCINE (60+ or ) (1 - 1-dose 75+ series) 02/21/2020 INFLUENZA VACCINE (#1) 2024
--- OUTSIDE RECORDS SUMMARY | 2025-01-16 10:35 | XMS_ITS | Encounter Summary ---
Author Organization [facility] Address [address] [place] [address] Care Team Providers Care Health Sciences Dean Name Role Phone Unavailable Primary Care Provider Unavailabl e Encounter Details Date Type Department Care Team (Late st Contact Info) Description 06/27/1997 Outpatient Historical [facility] OBLILLIANN-Cedric Coburnnn Karlee [address] [place] [phone] Social History Tobacco Use Types Packs/Day Years Used Date Smoking Tobacco: Never Assessed Comments Unknown Sex and Gender Information Value Date Recorded Sex Assigned at Not on file 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
--- OUTSIDE RECORDS SUMMARY | 2025-01-16 10:35 | XMS_ITS | Encounter Summary ---
Author Organization [facility] Address [address] [place] [address] Care Team Providers Care Wrapper Leaf Inspector Name Role Phone Satish Moctezuma MD Primary Care Provider [phone] Encounter Details Date Type Department Care Team (Late st Contact Info) Description 01/14/2025 External Device Data [facility] ABSTRACTION Provider, Abstract NO ADDRESS ON FILE Social History Tobacco Use Types Packs/Day Years Used Date Smoking Tobacco: Never Smokeless Tobacco: Former Comments:Quit cigarettes in the s. Did smoke 1 ppd. Alcohol Use Standard Drinks/Week Comments Never 0 (1 standard drink = 0.6 oz pur e alcohol) Feeling Safe Answer Date Recorded Are you in a relationship wi th someone who hurts you emotionally and/or physically? No 01/24/2024 Food Insecurity Answer Date Recorded Patient needs follow up regardin 08/20/2024 Transportation Needs Answer Date Record ed Patient needs follow up regardin 08/20/2024 Housing Stability Answer Date Recorded Social/Environmental Concerns No concerns Utility Needs Answer Date Recorded Patient needs follow up regardin 08/20/2024 Comments Unknown Sex and Gender Information Value Date Recorded Sex Assigned at Not on file Legal Sex Female 5:21 AM SOLUTIONS SPECIALIST Gender Identity Not on file Sexual Orientation Not on file documented as of this encounter Plan of Treatment Not on file documented as of this encounter Visit Diagnoses Not on filedocumented in this encounter Care Teams Wrapper Leaf Inspector Relationship Specialty Start Date End Date Satish Moctezuma MD [address] [place] [address] PCP - General Family Practice 01/29/24 documented as of this encounter
--- OUTSIDE RECORDS SUMMARY | 2025-01-16 10:35 | XMS_ITS | Encounter Summary ---
Author Organization [facility] Address [address] [place] [address] Care Team Providers Care Facilities Maintenance Engineer Name Role Phone Unavailable Primary Care Provider Unavailabl e Encounter Details Date Type Department Care Team (Late st Contact Info) Description 04/26/2002 Outpatient [facility] Breast Center [facility] [address] [place], [place] [id number] Shani Arshad MD [address] [place] [address] [place] [phone] SCREENING MAMM-MAILG NEOPL-OTHER (Primary Dx) Social History Tobacco Use Types Packs/Day Years Used Date Smoking Tobacco: Never Assessed Comments Unknown Sex and Gender Information Value Date Recorded Sex Assigned at Not on file 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
--- OUTSIDE RECORDS SUMMARY | 2025-01-16 10:35 | XMS_ITS ---
Author Name JEREMY SHORT Address [address] [place] [address] Phone Organization [facility] Address [address] [place] [address] Phone Care Team Providers Care Chemical Engineering Teacher Name Role Phone MD JEREMY SHORT Unavailable [phone] ALLERGIES, ADVERSE REACTIONS AND ALERTS Allergy Name Allergy Date Allergy Status Allergy Severity Allergy Reaction NO KNOWN DRUG ALLERGIES MEDICATIONS RxNorm Brand Name Prescription Ordered Value Order Unit Start Date Date Status Fill Status Indications [id number] donepezi l 5 mg tablet SIG: donepezil 5 mg oral tablet, 30 days, Dispense #30 Tablet, 12 Refills, Directions: One po daily with dinner 30 tablet 2023 Current [id number] melatoni n 5 mg tablet SIG: melatonin 5 mg oral tablet, 30 days, Dispense #30 Tablet, 6 Refills, Directions: One po qhs 30 tablet 2024 Current completed PROBLEMS Problem Code Problem Description Problem Status Problem Da te Problem End Date S46-Aebbnqnza (primary) hypertension Essential (primary) hypertension Current 2023 F03.918-UNSP DEMENTIA, UNSP SEVERITY, WITH OTHER BEHAVIORAL DISTURB UNSP DEMENTIA, UNSP SEVERITY, WITH OTHER BEHAVIORAL DISTURB Current 2023 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 Current 05/10/2023 R40.4-Transient alteration of awareness Transient alteration of awareness Current 08/29/2024 PROCEDURES Procedure Description Date Notes NO PROCEDURES PERFORMED ASSESSMENTS Assessment None PLAN OF TREATMENT Assessment Planned Activity LOINC Planned Michael e None CONSULTATION NOTE Note Author Date None HISTORY AND PHYSICAL NOTE Note Author Date None PROGRESS NOTE Note Author Date None DISCHARGE SUMMARY Note Author Date None CHIEF COMPLAINT AND REASON FOR VISIT FUNCTIONAL STATUS Functional or Cognitive Find ing None MENTAL STATUS Cognitive Finding None ENCOUNTERS Encounter Type Provider Diagnoses Start Date Location Disc harged to None SOCIAL HISTORY Social Status Observation Unknown if ever smoked Sex: Female CARE TEAM INFORMATION Chemical Engineering Teacher Provider ID Role Location Phone JEREMY SHORT [phone] [address], [place] [address] INSURANCE PROVIDERS Payer Name Policy type / Coverage type Covered republican ID Policy [facility] Health Insurance [id number] SELF
--- OUTSIDE RECORDS SUMMARY | 2025-01-16 10:35 | XMS_ITS | Encounter Summary ---
Author Organization [facility] Address [address] [place] [address] Care Team Providers Care Personal Care Service Provider Name Role Phone Unavailable Primary Care Provider Unavailabl e Encounter Details Date Type Department Care Team (Latest Contact Info) Description 03/02/2000 Outpatient Historical [facility] Breast Center Cedric Persaud Karlee [address] 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
--- OUTSIDE RECORDS SUMMARY | 2025-01-16 10:35 | XMS_ITS | Encounter Summary ---
Author Organization [facility] Address [address] [place] [address] Care Team Providers Care Spin Table Operator Name Role Phone Satish Moctezuma MD Primary Care Provider [phone] Encounter Details Date Type Department Care Team [...] on file Legal Sex Female 5:21 AM CLEARANCE REP Gender Identity Not on file Sexual Orientation Not on file documented as of this encounter Plan of Treatment Not on file documented as of this encounter Visit Diagnoses Not on filedocumented in this encounter Care Teams Spin Table Operator Relationship Specialty Start Date End Date Satish Moctezuma MD [address] [place] [address] PCP - General Family Practice 01/29/24 documented as of this encounter
--- OUTSIDE RECORDS SUMMARY | 2025-01-16 10:35 | XMS_ITS | Encounter Summary ---
Author Organization [facility] Address [address] [place] [address] Care Team Providers Care Car Retarder Operator Name Role Phone Unavailable Primary Care Provider Unavailabl e Encounter Details Date Type Department Care Team (Late st Contact Info) Description 03/02/2000 Outpatient Historical [facility] OBGYN-Cedric Catron Karlee [address] [place] [address] Shani Arshad MD [address] [facility] [place] [address] [place] [address] Gynecologic examination (Primary Dx) Social History Tobacco Use Types Packs/Day Years Used Date Smoking Tobacco: Never Assessed Comments Unknown Sex and Gender Information Value Date Recorded Sex Assigned at Not on file Legal Sex Female 6:38 AM DIRECTOR STRATEGIC ACCOUNT MANAGEMENT Gender Identity Not on file Sexual Orientation Not on file documented as of this encounter Plan of Treatment Not on file documented as of this encounter Visit Diagnoses Diagnosis Gynecologic examination- Primary Gynecological examination documented in this encounter
--- OUTSIDE RECORDS SUMMARY | 2025-01-16 10:35 | XMS_ITS | Encounter Summary ---
Author Organization [facility] Address [address] [place] [address] Care Team Providers Care Perfect Binder Setter Name Role Phone Unavailable Primary Care Provider Unavailabl e Encounter Details Date Type Department Care Team (Latest Contact Info) Description 02/23/1999 Outpatient Historical [facility] Breast [facility] Cedric Persaud Karlee [address] 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
--- OUTSIDE RECORDS SUMMARY | 2025-01-16 10:35 | XMS_ITS | Encounter Summary ---
Author Organization [facility] Address [address] [place] [address] Care Team Providers Care Director Medical Affairs Name Role Phone Unavailable Primary Care Provider Unavailabl e Encounter Details Date Type Department Care Team (Late st Contact Info) Description 02/23/1999 Outpatient Historical [facility] OBGYN-Cedric [place] Karlee [address] [place] [phone] Shani Arshad MD [address] [facility] [place] [address] [place] [address] Gynecologic examination (Primary Dx) Social History Tobacco Use Types Packs/Day Years Used Date Smoking Tobacco: Never Assessed Comments Unknown Sex and Gender Information Value Date Recorded Sex Assigned at Not on file Legal Sex Female 6:38 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
--- OUTSIDE RECORDS SUMMARY | 2025-01-16 10:35 | XMS_ITS | Clinical Summary ---
Author Organization [facility] Address [address] [facility] [address] [place] [address] Phone Care Team Providers Care Dish Cloth Inspector Name Role Phone Satish Moctezuma MD Primary Care Provider [phone] Allergies No known active allergies Medications metoprolol succinate (TOPROL XL) 50 mg Extended Release 24 hour tablet Take 50 mg by mouth daily. Daily at 8 am Active metoprolol succinate (TOPROL XL) 25 mg Extended Release 24 hour tablet Take 25 mg by mouth late in the day. Active donepeziL (ARICEPT) 5 mg tablet Take 5 mg by mouth daily with supper. Active VITAMIN B COMPLEX ORAL Take 1 Capsule by mouth daily. Active acetaminophen (TYLENOL) 325 mg tablet Take 325 mg by mouth every 6 hours as needed for Pain, Mild / Temperature. Active escitalopram oxalate (LEXAPRO) 20 mg tablet Take 1 Tablet (20 mg) by mouth daily. 30 Tablet 1 01/27/2024 Active Active Problems Problem Noted Date Diagnosed Date Syncope 01/24/2024 Seizure-like activity 01/24/2024 UTI (urinary tract infection) 01/24/2024 Dementia 01/24/2024 Primary hypertension 01/24/2024 Encounters Date Type Department Care Team Description 01/14/2025 External Device Data [facility] ABSTRACTION Provider, Abstract 01/14/2025 External Device Data [facility] ABSTRACTION Provider, Abstract 12/31/2024 External Device Data [facility] ABSTRACTION Provider, Abstract 12/04/2024 External Device Data [facility] ABSTRACTION Provider, Abstract 11/19/2024 External Device Data [facility] ABSTRACTION Provider, Abstract from Last 3 Months Family History Relation Name Status Comments Father Mother Social History Tobacco Use Types Packs/Day Years [...] on file Legal Sex Female 5:21 AM COMMUNITY SERVICE DIRECTOR Gender Identity Not on file Sexual Orientation Not on file Last Filed Vital Signs Vital Sign Reading Time Taken Comments Blood Pressure 135/74 01/27/2024 7:16 AM CDT Pulse 69 01/27/2024 7:16 AM CDT Temperature 36.4 C (97.6 F) 01/27/2024 7:16 AM CDT Respiratory Rate 16 01/27/2024 7:16 AM CDT Oxygen Saturation 96% 01/27/2024 7:16 AM CDT Inhaled Oxygen Concentration - - Weight 60.1 kg (132 lb 9 oz) 01/27/2024 4:34 AM CDT Height 168.9 cm (5' 6.5 ) 01/24/2024 11:06 PM CD T Body Mass Index 21.08 01/24/2024 11:06 PM CDT Plan of Treatment Health Maintenance Due Date Last Done Comments DTAP/TDAP/TD VACCINES (1 - Tdap) 02/21/1964 PNEUMOCOCCAL VACCINE 50+ YEARS (1 of 1 - PCV) 02/20/19 95 ZOSTER VACCINE (1 of 2) 1995 OSTEOPOROSIS SCREENING 2010 RSV VACCINE (60+ or ) (1 - 1-dose 75+ series) 02/21/2020 INFLUENZA VACCINE (#1) 2024 Insurance [facility] [id number] Advance Directives For more information, please contact: [phone] Documents on File Type Date Recorded Patient 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 intubation): No Mechanical Ventilation (for respiratory distress) - Non-Invasive (i.e. BiPAP, CPAP): Yes Care Teams Dish Cloth Inspector Relationship Specialty Start Date End Date Satish Moctezuma MD [address] [place] [phone] PCP - General Family Practice 01/29/24
[2025-01-16 10:41] LABS: Hematocrit 42.7 % (36-47); Hemoglobin 13.50 g/dL (11.27-16.99); Mean Corpuscular HGB Conc 31.6 g/dL (30-55); Mean Corpuscular Hemoglobin 28.2 pg (27-33); Mean Corpuscular Volume 89.3 fl (85-98); Nucleated Red Blood Cells % 0 %; Platelet Count 235 10^3/cmm (157-399); Red Blood Count 4.78 10^6/uL (3.85-5.65); White Blood Count 6.19 10^3/uL (3.29-11.43)
--- NOTE | 2025-01-16 10:42 | CTR_ITS ---
PROCEDURE INFORMATION: Exam: CT Cervical Spine Without Contrast Exam date and time: 01/16/2025 10:41 AM Age: 79 years old Clinical indication: Injury or trauma; Fall; Blunt trauma TECHNIQUE: Imaging protocol: Computed tomography of the cervical spine without contrast. Radiation optimization: All CT scans at this facility use at least one of these dose optimization techniques: automated exposure control; mA and/or kV adjustment per patient size (includes targeted exams where dose is matched to clinical indication); or iterative reconstruction. COMPARISON: No prior cervical spine imaging for comparison. RADIATION DOSE METRICS: Total DLP (mGy-cm): 211.9 FINDINGS: No acute fracture or traumatic subluxation of the cervical spine is identified. Very slight loss of height at C7 appears chronic. Mild chronic degenerative changes are present at multiple levels. The bones appear osteopenic. There is no prevertebral soft tissue swelling. Indeterminate 12 mm lesion in the right thyroid lobe. CT/CT cervical spin wo con* [id number] IMPRESSION: 1. No obvious acute cervical spine fracture. 2. Incidental right thyroid nodule, measuring 12 mm. See comments below. COMMENTS: Consistent with the [employer]'s Incidental Findings Committee white paper (J Am Varinder Radiol 2015): In patients aged 35 years and older with an incidental thyroid nodule equal to or greater than 1.[address], MRI or extrathyroidal US, further evaluation with dedicated thyroid US is recommended for patients with normal life expectancy and without comorbidities. For smaller nodules without suspicious features, no further evaluation or follow up is recommended.
--- NOTE | 2025-01-16 10:51 | ED_ITS ---
HPI - Altered Mental Status 2 General: Chief Complaint: Altered Mental Status Stated Complaint: fall - confusion - hypertension Time Seen by Provider: 01/16/25 10:47 History of Present Illness: 79-year-old female with history of demen tia hypertension and depression who presents to the emergency roomBy ambulance from [facility]. She had a fall. There are some reports of some back and rib pain which she does not complain of now. She says she did not fall. However she does have some dementia. She is alert and oriented to herself. Related Data Home Medications ?Medication ?Instructions ?Recorded ?Confirmed donepezil 5 mg tablet 5 mg PO QPM 01/16/25 5 vitamin B complex-folic acid 400 1 cap PO DAILY 01/16/25 mcg capsule Previous Rx's ?Medication ?Instructions ?Recorded escitalopram oxalate 10 mg tablet 10 mg PO DAILY #30 t abs 07/19/22 (Lexapro) metoprolol succinate 50 mg See Rx Instructions .Route 11/21/22 tablet,extended release 24 hr .COMPLEX #90 tabs metoprolol succinate 25 mg See Rx Instructions .Route 04/04/23 tablet,extended release 24 hr .COMPLEX #90 tabs Allergies Allergy/AdvReac Type Severity Reaction Status Date / Time No Known Allergies Allergy Verified 09/18/23 16:16 Review of Systems 2 Narrative: Constitutional symptoms: Negative except as documented in HPI. Skin symptoms: Negative except as documented in HPI. Eye symptoms: Negative except as documented in HPI. ENMT symptoms: Negative except as documented in HPI. Respiratory symptoms: Negative except as documented in HPI. Cardiovascular symptoms: Negative except as documented in HPI. Gastrointestinal symptoms: Negative except as documented in HPI. Genitourinary symptoms: Negative except as documented in HPI. Musculoskeletal symptoms: Negative except as documented in HPI. Neurologic symptoms: Negative except as documented in HPI. Psychiatric symptoms: Negative except as documented in HPI. Endocrine symptoms: Negative except as documented in HPI. PFSH ED 2 PFS: Medical History (Updated 01/16/25 @ 11:45 by Bisi Zaragoza MD) Anxiety Depression Hypertension Surgical History History of appendectomy Hx of tonsillectomy Hx of hysterectomy S/P foot surgery, left excision of mass Family History Mother Cancer Sister Cancer Brother Cancer Father Heart disease Denies family history of Diabetes CAD (coronary artery disease) Clotting disorder Dementia Hyperlipidemia Psychiatric illness Chronic kidney disease (CKD) Suicide Anesthesia complication Bleeding disorder Family history of premature coronary artery disease Lung disease Hypertension Stroke Social History Smoking and tobacco/nicotine status: never used tobacco/nicotine Alcohol intake: never Substance/Drug Use: never Current occupational status: retired Physical Exam 2 Narrative: General: Alert, no acute distress. Skin: Warm, dry. Head: Normocephalic, atraumatic. Neck: Supple, trachea midline. Eye: Extraocular movements are intact. Ears, nose, mouth and throat: mucosa moist. Cardiovascular: Regular, Normal peripheral perfusion. Respiratory: Lungs are clear to auscultation, respirations are non-labored, breath sounds are equal, Symmetrical chest wall expansion. Gastrointestinal: Soft, Nontender, Non distended Musculoskeletal: Normal ROM, no deformity. Neurological: Alert and oriented, No focal neurological deficit observed. Psychiatric: Cooperative, appropriate mood & affect. Course 2 Vital Signs: Vital signs: Vital Signs Temperature 97.6 F 01/16/25 10:35 Pulse Rate 63 01/16/25 11:30 Respiratory Rate 16 01/16/25 10:35 Blood Pressure 154/73 01/16/25 11:30 Pulse Oximetry 93 01/16/25 11:30 Oxygen Delivery Me thod Room Air 01/16/25 11:30 MDM - Altered Mental Status Medical Decision Making Medical decision making: Differential diagnosis including but not limited to and based on the above HPI, review of systems and physical exam: patient with fall and head injury. Subdural hematoma, subarachnoid hemorrhage, concussion, skull fracture. Orders placed to evaluate differential diagnosis based on the above differential, HPI and physical exam CT scan of the head was ordered. I reviewed the patient's medical record. EKG: Time 10:59 AM. Rate 57. Sinus bradycardia, No ST-T changes, no ectopy, normal TX & QRS intervals, This was reviewed and interpreted by myself the ER physician at 11:[address] head: No acute intracranial process. No intracranial hemorrhage, no evidence of infarct. No evidence of acute fracture. This was reviewed and interpreted by myself the emergency room physician. I also reviewed the radiology report. CT of the cervical spine: No fracture. Good alignment. No step-offs. This was reviewed and interpreted by myself the emergency room physician. I also reviewed the radiologist report. Assessment and plan: Fall, head injury - Discharged home - Discussed plan with patient. Answered any questions. - Evaluation and treatment of this problem were appropriate in the emergency setting. Lab Data 01/16/25 09:59 01/16/25 09:[address] 01/16/25 10:25 IMPRESSION: No acute intracranial hemorrhage or mass effect. Cervical Spine CT 01/16/25 10:42 IMPRESSION: 1. No obvious acute cervical spine fracture. 2. Incidental right thyroid nodule, measuring 12 mm. See comments below. COMMENTS: Consistent with the [place] [employer]'s Incidental Findings Committee white paper (J Am Varinder Radiol 2015): In patients aged 35 years and older with an incidental thyroid nodule equal to or greater than 1.[address], MRI or extrathyroidal US, further evaluation with dedicated thyroid US is recommended for patients with normal life expectancy and without comorbidities. For smaller nodules without suspicious features, no further evaluation or follow up is recommended. Laboratory Results WBC 6.19 10^3/uL (3.29-11.43) 01/16/25 09:59 RBC 4.78 10^6/uL (3.85-5.65) 01/16/25 09:59 Hgb 13.50 g/dL (11.27-16.99) 01/16/25 09:59 Hct 42.7 % (36-47) 01/16/25 09:59 MCV 89.3 fl (85-98) 01/16/25 09:59 MCH 28.2 pg (27-33) 01/16/25 09:59 MCHC 31.6 g/dL (30-55) 01/16/25 09:59 RDW 13.1 % (12.1-15.1) 01/16/25 09:59 Plt Count 235 10^3/cmm (157-399) 01/16/25 09:59 MPV 10.9 fL (7.4-10.4) H 01/16/25 09:59 Neut % (Auto) 61.6 % 01/16/25 09:59 Lymph % (Auto) 23.1 % 01/16/25 09:59 [place] % (Auto) 7.6 % 01/16/25 09:59 Eos % (Auto) 5.8 % 01/16/25 09:59 Baso % (Auto) 0.8 % 01/16/25 09:59 Neut # (Auto) 3.81 10^3/uL (1.8-7.7) 01/16/25 09:59 Lymph # (Auto) 1.4 10^3/uL (0.8-4.8) 01/16/25 09:59 [place] # (Auto) 0.5 10^3/uL (0.2-0.9) 01/16/25 09:59 Eos # (Auto) 0.4 10^3/uL (0.0-0.8) 01/16/25 09:59 Baso # (Auto) 0.1 10^3/uL (0.0-0.1) 01/16/25 09:59 Nucleated RBC % (auto) 0 % 01/16/25 09:59 Nucleated RBCs # 0.0 /100WBC 01/16/25 09:59 Sodium 142 mmol/L (136-145) 01/16/25 09:59 Potassium 3.8 mmol/L (3.5-5.1) 01/16/25 09:59 Chloride 106 mmol/L (98-107) 01/16/25 09:59 Carbon Dioxide 25 mmol/L (22-29) 01/16/25 09:59 Anion Gap 14.8 (5-19) 01/16/25 09:59 BUN 10 mg/dL (8-23) 01/16/25 09:59 Creatinine 0.5 mg/dL (0.5-0.9) 01/16/25 09:59 GFR Calculation Not Reportable 01/16/25 09:59 Glucose 125 mg/dL (65-115) H 01/16/25 09:59 Calculated Osmolality 295 mOsm/kg (285-295) 01/16/25 09:59 Calcium 9.0 mg/dL (8.5-10.5) 01/16/25 09:59 Total Bilirubin 0.3 mg/dL (0.15-1.2) 01/16/25 09:59 AST 25 U/L (0-32) 01/16/25 09:59 ALT 16 U/L (0-33) 01/16/25 09:59 Alkaline Phosphatase 105 U/L (35-105) 01/16/25 09:59 Total Protein 6.7 g/dL (6.6-8.7) 01/16/25 09:59 Albumin 4.1 g/dL (3.5-5.2) 01/16/25 09:59 Globulin 2.6 g/dL (1.3-4.6) 01/16/25 09:59 Urine Color Yellow (Yellow) 01/16/25 11:00 Urine Appearance Clear (CLEAR) 01/16/25 11:00 Urine pH 6.5 (5-7) 01/16/25 11:00 Ur Specific [place] 1.012 (1.005-1.030) 01/16/25 11:00 Urine Protein Trace (Negative) A 01/16/25 11:00 Urine Glucose (UA) Negative (Normal) 01/16/25 11:00 Urine Ketones Negative (Negative) 01/16/25 11:00 Urine Blood Trace (Negative) A 01/16/25 11:00 Urine Nitrate Negative (Negative) 01/16/25 11:00 Urine Bilirubin Negative (Negative) 01/16/25 11:00 Urine Urobilinogen 0.2 mg/dL (Negative) 01/16/25 11:00 Ur Leukocyte Esterase Negative (Negative) 01/16/25 11:00 Amorphous Sediment Not Reportable 01/16/25 11:00 All radiology interpretation(s) finalized by discharge Discharge Plan Discharge Patient Disposition: Home Clinical Impression: Head injury, Fall Moderate Alzheimer's dementia Qualifiers: Alzheimer's disease onset: late onset Dementia behavioral or psychological symptom: without behavioral, psychotic, or mood disturbance or anxiety Qualified Code(s): G30.1 - Alzheimer's disease with late onset Condition: Stable Prescriptions: No Action escitalopram oxalate [Lexapro] 10 mg tablet 10 mg PO DAILY Qty: 30 11RF metoprolol succinate 50 mg tablet extended release 24 hr See Rx Instructions .ROUTE .COMPLEX Qty: 90 3RF Dose Instruction: Take 1 tablet by mouth once daily Rx Instructions: Take 1 tablet by mouth once daily metoprolol succinate 25 mg tablet extended release 24 hr See Rx Instructions .ROUTE .COMPLEX Qty: 90 3RF Dose Instruction: TAKE 1 TABLET BY MOUTH ONCE DAILY AT NIGHT Rx Instructions: TAKE 1 TABLET BY MOUTH ONCE DAILY AT NIGHT donepezil 5 mg tablet 5 mg PO QPM vitamin B complex-folic acid 400 mcg Capsule 1 cap PO DAILY Discharge Orders: Discharge ED (Routine); Ordered 01/16/25 Ordered By: Bisi Zaragoza Referrals: Mark Lyman DO [Primary Care Provider, Family Practice] Discharge Diet: Usual diet Discharge Activity: Increase activity as tolerated Patient Instructions: Fall Prevention for Older Adults (ED), Opioid Safety, Pain Management, Patient Portal & [place] Instructions Activity Restrictions/Additional Instructions: Thank you for choosing [facility] for your healthcare needs today. You have been screened and evaluated and felt safe for discharge. Health conditions do change or evolve sometimes and as such it is important that you follow up with your Primary Doctor to be re checked, 3-5 days is a general good time frame for follow up. You are always welcome to return to the ED for re assessment if your symptoms are worsening or you have new concerns Print Language: Azeri Coding Level of Care Code ED Library Paraprofessional for Pastor Barrientos
[2025-01-16 10:59] LABS: Alanine Aminotransferase 16 U/L (0-33); Albumin Level 4.1 g/dL (3.5-5.2); Alkaline Phosphatase 105 U/L (35-105); Anion Gap 14.8 (5-19); Aspartate Amino Transferase 25 U/L (0-32); Blood Urea Nitrogen 10 mg/dL (8-23); Calcium 9.0 mg/dL (8.5-10.5); Carbon Dioxide 25 mmol/L (22-29); Chloride 106 mmol/L (98-107); Creatinine Clr Calc Pharmacy 57.7692; Globulin 2.6 g/dL (1.3-4.6); Glucose 125 mg/dL (65-115); Osmolality Calculated 295 mOsm/kg (285-295); Potassium 3.8 mmol/L (3.5-5.1); Sodium 142 mmol/L (136-145); Total Protein 6.7 g/dL (6.6-8.7)
[2025-01-16 11:29] VITALS: BP 157/70; PULSE 63; O2SAT 94
[2025-01-16 11:30] VITALS: BP 154/73; PULSE 63; O2SAT 93
[2025-01-16 11:39] LABS: Glucose Urine UA Negative (Normal); Nitrate Urine Negative (Negative); Specific Gravity, Urine 1.012 (1.005-1.030)
[2025-01-16 11:52] LABS: Add Urine Microscopic? YES
== END 2025-01-16 12:31 | disposition home or self-care (01) ==
PROVIDERS: Family Medicine; Emergency Provider Emergency Medicine; PCP Family Medicine
DX: S09.90XA Unspecified injury of head, initial encounter (principal); W19.XXXA Unspecified fall, initial encounter; G30.1 Alzheimer's disease with late onset; I10 Essential (primary) hypertension
CPT/HCPCS: 36416; 70450; 72125; 80053; 81001; 82962; 85025; 93005; 99284

== ENCOUNTER 2025-01-16 13:15 | Emergency (ER) | payer MEDICARE, SELFPAY ==
[2025-01-16] VITALS (7 sets, daily range): BP systolic 147–178; BP diastolic 70–89; PULSE 58–80; RESP 17–21; TEMP 36.7; O2SAT 79–99; BMI 23.9
--- OUTSIDE RECORDS SUMMARY | 2025-01-16 13:26 | XMS_ITS ---
Author Name JEREMY SHORT Address [address] [place] [address] Phone Organization [facility] [employer] Address [address] [place] [address] Phone Care Team Providers Care Learning Facilitator Name Role Phone MD JEREMY SHORT Unavailable [phone] ALLERGIES, ADVERSE REACTIONS AND ALERTS Allergy Name Allergy Date Allergy Status Allergy Severity Allergy Reaction NO KNOWN DRUG ALLERGIES MEDICATIONS RxNorm Brand Name Prescription Ordered Value Order Unit Start Date Date Status Fill Status Indications [id number] donepezi l 5 mg tablet SIG: donepezil 5 mg oral tablet, 30 days, Dispense #30 Tablet, 12 Refills, Directions: One po daily with dinner 30 tablet 2023 Current [id number] melatoni n 5 mg tablet SIG: melatonin 5 mg oral tablet, 30 days, Dispense #30 Tablet, 6 Refills, Directions: One po qhs 30 tablet 2024 Current completed PROBLEMS Problem Code Problem Description Problem Status Problem Da te Problem End Date J11-Scywwolks (primary) hypertension Essential (primary) hypertension Current 2023 [...] ever smoked Sex: Female CARE TEAM INFORMATION Learning Facilitator Provider ID Role Location Phone JEREMY SHORT [id number] [address], [place] [address] INSURANCE PROVIDERS Payer Name Policy type / Coverage type Covered democrat ID Policy [facility] Health Insurance [id number] SELF
--- OUTSIDE RECORDS SUMMARY | 2025-01-16 13:26 | XMS_ITS | Clinical Summary ---
Author Organization [facility] Address [address] 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
--- OUTSIDE RECORDS SUMMARY | 2025-01-16 13:26 | XMS_ITS | Clinical Summary ---
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 Gender Identity Not on file Sexual Orientation [...] series) 02/21/2020 INFLUENZA VACCINE (#1) 2024 Insurance [facility] [id number] Advance Directives For more information, please contact: [phone] Documents on File Type Date Recorded Patient Still Operator Expl anation Advance Directive POA 01/24/2024 11:18 AM legal guardian papers * NO CPR (In Event of Cardiopulmonary Arrest) (Latest Code Status on File) Date Activated Date Inactivated Comments 01/24/2024 9:05 PM 01/27/2024 1:40 PM Question Answer Comments Mechanical Ventilation (for respiratory distress) - Invasive (i.e. intubation): No Mechanical Ventilation (for respiratory distress) - Non-Invasive (i.e. BiPAP, CPAP): Yes Care Teams Superintendent Construction Relationship Specialty Start Date End Date Satish Moctezuma MD [address] [place] [id number] PCP - General Family Practice 01/29/24
--- OUTSIDE RECORDS SUMMARY | 2025-01-16 13:26 | XMS_ITS | Encounter Summary ---
Author Organization [employer] Address 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
--- OUTSIDE RECORDS SUMMARY | 2025-01-16 13:26 | XMS_ITS | Encounter Summary ---
Author Organization [facility] Address [address] [place] [address] Care Team Providers Care Allergy Nurse Name Role Phone Unavailable Primary Care Provider Unavailabl e Encounter Details Date Type Department Care Team (Late st Contact Info) Description 03/02/2000 Outpatient Historical [facility] OBGYN-Cedric [place] Karlee [address] [place] [id number] Shani Arshad MD [address] [facility] [place] [address] Gynecologic examination (Primary Dx) Social History Tobacco Use Types Packs/Day Years Used Date Smoking Tobacco: Never Assessed Comments Unknown Sex and Gender Information Value Date Recorded Sex Assigned at Not on file Legal Sex Female 6:38 AM IMPROVEMENT SPEC Gender Identity Not on file Sexual Orientation Not on file documented as of this encounter Plan of Treatment Not on file documented as of this encounter Visit Diagnoses Diagnosis Gynecologic examination- Primary Gynecological examination documented in this encounter
--- OUTSIDE RECORDS SUMMARY | 2025-01-16 13:26 | XMS_ITS | Encounter Summary ---
Author Organization [employer] Address 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
--- OUTSIDE RECORDS SUMMARY | 2025-01-16 13:26 | XMS_ITS | Data Portability ---
Author Organization [facility] Isac Nieto, [facility] Address [address] [address] Care Team Providers Care Fast Food Shift Supervisor Name Role Phone KATRINA MOCTEZUMA Primary Care Provider Assessment No assessment recorded. Plan of Treatment Reminders Order Date Submit Date Provider Last Modified By Organization Details Last Modified Time Details Appointments None record ed. Lab None record ed. Referral None record ed. Procedures None record ed. Surgeries None record ed. Imaging None record ed. Medication Orders None record ed. Patient TargetsNo targets recorded. Patient InstructionsNo instructions recorded. Reason for Referral None Reported. Results Created Date Observation Date Name Description Value Unit Range Abnormal Flag Note LastModifiedBy Organization Detail LastModifiedTime Result Notes None recorded. Problems Name Problem SNOMED Code Status Onset Date Resolution Date Notes Provider Name and Address Organization Details Recorded Time Essential hypertension 87323523 Active 2023 Katrina Moctezuma MD [address] [place] [address], [phone], [facility] Depressive disorder 04562625 Active 2023 Katrina Moctezuma MD [address] [place], [address], [place] [facility] Alzheimer's disease 10599579 Active 2023 Katrina Moctezuma MD [address] [place] [address], [phone], [facility] 15:35[facility]07 Syncope 944574206 Active 2023 Katrina Moctezuma MD [address] [place] [address], [address], [facility], [facility] 4 09:10:00 Acute urinary tract infection 776431701 Active 2023 Katrina Moctezuma MD [address] [place] [address], [address], [facility], [facility] 5 15:35:12 Injury of finger 49411801 Active 2023 Katrina Moctezuma MD [address] [place] [address], [phone], [facility], LAngelicaLAngelicaCAngel[facility] 5 15:35:18 Problem Notes None recorded. Procedures Surgical History Date Name Laterality Status Provider Name and Address Organization Details Recorded Time Appendectomy completed [facility], [place] 12/23/2023 22:37:05 Hysterectomy completed [facility], LAngelicaLAngel[facility]CAngel[facility] 12/23/2023 22:37:17 Tonsillectomy completed [facility], LAngelicaLAngelicaCAngelica 12/23/2023 22:37:30 Imaging Results None recorded. Procedure Notes None recorded. Medical Equipment None Reported. Allergies Allergen ID Allergen Name Allergen Category Reaction Reaction Severity Criticality Documentation Date Start Date Code Code System Note Provider Name and Address Organization Details Recorded Time 12770 lidocaine -epinephr -tetracai ne medicatio n Not available Not available Not available 11/12/2022 Comme nt: Recor ded 10/14 2:22P M by Virgil Hedrick MD, Offic e Visit ; Griselda larry; Abhay chandler ce: *; ; Not Available [facility] 3 02:23:41 Medications Name Sig Start Date Stop Date Status Note LastModified by Organization Details LastModified Time donepezil 5 mg tablet Take 1 tablet every day by oral route in the evening. active Not Available Not Available No t Available metoprolo l succinate ER 50 mg tablet,ex tended release 24 hr TAKE 1 TABLET BY MOUTH ONCE DAILY active Not Available Not Available No t Available Keflex 500 mg capsule TID 12/22 completed bcp; Recorded 10/27/19 04 8:57AM by Valentina Brito RN, Phone Encounte r; Not Available Not Available Not Available penicilli n V potassium 500 mg tablet TAKE 1 TABLET BY MOUTH 4 TIMES DAILY UNTIL GONE 10/31 completed Not Available Not Available Not Available metoprolo l succinate ER 25 mg tablet,ex tended release 24 hr TAKE 1 TABLET BY MOUTH ONCE DAILY AT NIGHT active Not Available Not Available No t Available amoxicill in 875 mg-potass ium clavulana te 125 mg tablet TAKE 1 TABLET BY MOUTH EVERY 12 HOURS FOR 4 DAYS. 07/31 completed Not Available Not Available Not Available escitalop liu 10 mg tablet Take 1 tablet every day by oral route. active Not Available Not Available No t Available escitalop liu 20 mg tablet TAKE 1 TABLET BY MOUTH EVERY DAY 07/31 completed Not Available Not Available Not Available vitamin B complex 1 capsule every day 07/31 completed Not Available Not Available Not Available metoprolo l succinate ER 25 mg capsule sprinkle, ext. release 24 hr Take 1 capsule every day by oral route. 07/31 completed Not Available Not Available Not Available metoprolo l succinate ER 50 mg capsule sprinkle, ext. release 24 hr Take 1 capsule every day by oral route at bedtime. 07/31 completed Not Available Not Available Not Available B Complex 1 (with folic acid) 1 capsule every day active Not Available Not Available No t Available Vitals Date Recorded Oxygen saturation Oxygen saturation in Arterial blood by Pulse oximetry Heart rate Respiratory rate Body temperature Systolic And Diastolic Provider Name and Address Organization Details Last Updated DateTime 5 93 % 93 % 74 /min 18 /min 99 [degF] 136/62 mm[Hg] Katrina Moctezuma MD [address] [place], [address], [place] - [facility], LAngelicaLAshok 5 12:43:05 Date Recorded Oxygen saturation Oxygen saturation in Arterial blood by Pulse oximetry Heart rate Body temperature Systolic And Diastolic Provider Name and Address Organization Details Last Updated DateTime 5 92 % 92 % 63 /min 97.6 [degF] 126/80 mm[Hg] Sarah Angeles [facility] 5 17:46:51 Date Recorded Oxygen saturation Oxygen saturation in Arterial blood by Pulse oximetry Heart rate Respiratory rate Body temperature Systolic And Diastolic Provider Name and Address Organization Details Last Updated DateTime 4 99 % 99 % 67 /min 20 /min 98.1 [degF] 140/76 mm[Hg] Katrina Moctezuma MD [address] [place] [address], [phone], [facility] 4 17:47:00 Date Recorded Oxygen saturation Oxygen saturation in Arterial blood by Pulse oximetry Heart rate Respiratory rate Body temperature Systolic And Diastolic Provider Name and Address Organization Details Last Updated DateTime 4 99 % 99 % 110 /min 20 /min 98.4 [degF] 132/76 mm[Hg] Katrina Moctezuma MD [address] [place] [address], [phone], [facility] 4 09:10:53 Date Recorded Oxygen saturation Oxygen saturation in Arterial blood by Pulse oximetry Heart rate Respiratory rate Body temperature Systolic And Diastolic Provider Name and Address Organization Details Last Updated DateTime 4 97 % 97 % 75 /min 18 /min 98.8 [degF] 139/82 mm[Hg] Katrina Moctezuma MD [address] [place] [address], [address], [facility] 4 09:31:20 Social History Question Answer Notes LastModified by Organizat ion Details LastModified Time Tobacco Smoking Status Never Smoker Katrina Moctezuma MD [address] [place] [address], [phone], [facility] 01/07/2024 17:51:50 Do You Have An Advance Directive? No Information not available 12/23/2023 Are You Blind Or Do You Have Difficulty Seeing? No Information not available 01/07/2024 Is Blood Transfusion Acceptable In An Emergency? No Information not available 12/23/2023 What Is Your Code Status? Full Code Information not available 12/23/2023 Are You Deaf Or Do You Have Serious Difficulty Hearing? No Information not available 01/07/2024 Do You Have A Directive To Physicians? No Information not available 12/23/2023 Do You Have A Medical Power Of Heavy Media Operator? No Information not available 12/23/2023 What Was The Date Of Your Most Recent Tobacco Screening? 11/01/2024 [email or web address] Information not available 11/01/2024 Do You Have An Out Of Hospital DNR? No Information not available 12/23/2023 Do You Have A Patient Advocate? Yes Information no t available 12/23/2023 Do You Have Difficulty Walking Or Climbing Stairs? No Information not available 01/07/2024 Sex: Unknown Functional Status Question Answer Note LastModified by Organizat ion Details LastModified Time Do you use any illicit or recreational drugs? No [email or web address] Information not available 11/01/2024 What is your level of alcohol consumption? None [email or web address] Information not available 11/01/2024 Are you able to care for yourself independently? Yes Information not available 01/07/2024 Do you have difficulty dressing, bathing, grooming, or toileting? No Information not available 01/07/2024 Mental Status Question Answer Note LastModified by Organization D etails LastModified Time Do you have difficulty concentrating, remembering or making decisions? Yes Information no t available 01/07/2024 Family History Nothing Reported Notes:Cancer; Mother-lung, M I; Father, Diabetes ; Paternal Grandmother, Paternal Grandfather Medical History No medical history recorded. Gynecological HistoryNo gynecological history recorded. Obstetrics History GPAL:G 0 P 0 0 0 0 Immunizations Vaccine Type Date Status Note Provider Nam e and Address Organization Details Recorded Time Influenza, high-dose, trivalent, PF 02/09/2015 completed Not Available [facility] 2024 09:36:05 COVID-19, mRNA, LNP-S, PF, 30 mcg/0.3 mL dose 05/15/2020 completed Not Available [facility] 5 09:36:05 Past Encounters Encounter ID Performer Location Encounter Start Date Encounter Closed Date Diagnosis/Indication Diagnosis SNOMED-CT Code Diagnosis ICD10 Code Diagnosis IMO Codes Diagnosis Note [id number] Katrina Moctezuma MD [facility] ([facility]) [address] [place] [phone] 01/05/2024 11:26:51 01/08/2024 11:49:36 Essential hypertension 59345355 I10 Controlled . Patient will monitor blood pressure and report if unable to control or if they develop new symptoms. Depressive disorder 3548 9007 F32.A Stable on current medication s. Alzheimer's disease 2692 9004 G30.1 Patient is tolerating her medication without any issues. No significan t changes. [id number] Katrina Moctezuma MD [facility] ([facility]) [address] [place] [phone] 02/02/2024 13:08:54 02/02/2024 16:58:56 Alzheimer's disease 44154295 G30.1 Patient is tolerating her medication without any issues. No significan t changes. Depressive disorder 3548 9007 F32.A Stable on current medication s. Essential hypertension 03542833 I10 Controlled . Patient will monitor blood pressure and report if unable to control or if they develop new symptoms. Syncope 362759221 R55 No concerns on today's examinatio n. Continue to monitor at this time. Acute urin scott tract infection 473599737 N39.0 There is some concerns of residual UTI symptoms. Will recheck UA and culture. [id number] Katrina Moctezuma MD [facility] ([facility]) [address] [place] [phone] 02/23/2024 13:25:45 02/23/2024 17:29:49 Injury of finger 49336503 S69.90XA Will obtain x-rays of the hand for initial evaluation . Start PT eval and treat. May consider MRI if symptoms are not improving. [id number] Katrina Moctezuma MD [facility] ([facility]) [address] [place] [phone] 07/26/2024 13:37:56 07/29/2024 07:22:28 Alzheimer's disease 19368367 G30.1 Patient is tolerating her medication without any issues. No significan t changes. Essential hypertension 38247903 I10 Controlled . Patient will monitor blood pressure and report if unable to control or if they develop new symptoms. Depressive disorder 3548 9007 F32.A Stable on current medication s. [id number] Katrina Moctezuma MD [facility] ([facility]) [address] [place] [address] 11/01/2024 09:35:48 11/05/2024 11:32:26 Alzheimer's disease 42319624 G30.1 Patient is tolerating her medication without any issues. No significan t changes. Depressive disorder 3548 9007 F32.A Stable on current medication s. Essential hypertension 11545003 I10 Controlled . Patient will monitor blood pressure and report if unable to control or if they develop new symptoms. Health Concerns Section Related Observation LastModified by Organization Detai ls LastModified Time None Recorded Concern Status LastModified by Organization Details LastModified Time None Recorded Advance Directives Directive N: Payers Insurance Date Sequence Insurance Name Policy Number Policy Red Covered Member ID Red Member ID Guarantor Name 01/14/2025 1 [facility] (MEDICARE REPLACEMENT/A DVANTAGE - PPO) [id number] Adeline Prabhakar [id number] Parminder Prabhakar 01/14/2025 1 [place] Adeline Prabhakar [id number] Parminder Prabhakar Notes Date Note Type Note Provider Name and Address Organization Details Recorded Time 01/05/2024 text/html This is a 78-year-old female that that was seen today at the assisted living facility for routine visit and establish care. Patient states that she is doing well and she has no acute concerns. There are no nursing concerns. The patient states that her chronic medical issues are stable and she is tolerating medication without any issues. The patient has recently started on donepezil and is tolerating it without any concerns. Blood pressure has been stable. Katrina Moctezuma MD [address] [place] [address], [phone], [facility], LAngelicaLAngelicaCAngelica 01/08/2024 10:46:21 02/02/2024 text/html This is a 78-year-old female was seen at her apartment at [place] will follow-up. The patient recently had a hospital stay at [facility] after a syncopal episode. The patient was treated for UTI but no other abnormality was noted. Patient states that she had a similar episode approximately 3 years ago at her sister's house and they were told that she probably had a seizure with. The patient has not had any known seizures since and denies any. Seizure medications or neurology follow-up. states that her chronic medical issues are otherwise stable. Patient is tolerating her medications without any issues. No further syncopal episodes since discharge. There is some concerns of persistent dysuria. Katrina Moctezuma MD [address] [place] [address], [phone], [facility] 02/04/2024 09:11:41 02/23/2024 text/html This is a 79-year-old female that is was seen at her apartment in [place]. The patient has been having issues with her left second finger. States that she is unable to flex it and it is painful if she tries. Patient denies any known injury. Katrina Moctezuma MD [address] [place] [address], [phone], [facility] 02/26/2024 09:35:10 07/26/2024 text/html This is a 79-year-old female that was seen for routine follow-up at her apartment in assisted living. The patient has no acute concerns today. The patient states that her chronic medical issues are doing well on current medications. There are no nursing concerns. The patient has been tolerating her medications with no significant side effects Katrina Moctezuma MD [address] [place] [address], [phone], [facility] 07/28/2024 12:44:45 11/01/2024 text/html Pt seen today as a 3 month follow upShe is doing well, no concerns at this time. Patient's medical issues were stable and she is tolerating her meds without significant issues. Katrina Moctezuma MD [address] [place] [address], [phone], [facility], [place] 11/03/2024 22:34:25 OBGyn Episode No OBEpisode recorded.
--- OUTSIDE RECORDS SUMMARY | 2025-01-16 13:26 | XMS_ITS | Encounter Summary ---
Author Organization [facility] Address [address] [place] [address] Care Team Providers Care Ribbon Winder Name Role Phone Unavailable Primary Care Provider Unavailabl e Encounter Details Date Type Department Care Team (Late st Contact Info) Description 02/23/1999 Outpatient Historical [facility] OBGYN-Cedric Corson Karlee [address] [place] [phone] Shani Arhsad MD [address] [facility] [place] [address] Gynecologic examination (Primary Dx) Social History Tobacco Use Types Packs/Day Years Used Date Smoking Tobacco: Never Assessed Comments Unknown Sex and Gender Information Value Date Recorded Sex Assigned at Not on file 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
--- OUTSIDE RECORDS SUMMARY | 2025-01-16 13:26 | XMS_ITS | Encounter Summary ---
Author Organization [facility] Address [address] [place] [address] Care Team Providers Care Commercial Instructor Supervisor Name Role Phone Unavailable Primary Care Provider Unavailabl e Encounter Details Date Type Department Care Team (Latest Contact Info) Description 02/23/1999 Outpatient Historical [facility] Cedric Persaud Kar[address] 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
--- OUTSIDE RECORDS SUMMARY | 2025-01-16 13:26 | XMS_ITS | Encounter Summary ---
Author Organization [facility] Address [address] [place] [address] Care Team Providers Care Duco Polisher Name Role Phone Unavailable Primary Care Provider Unavailabl e Encounter Details Date Type Department Care Team (Latest Contact Info) Description 03/02/2000 Outpatient Historical [facility] Breast Center Cedric Persaud Karlee [address] 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
--- OUTSIDE RECORDS SUMMARY | 2025-01-16 13:26 | XMS_ITS | Encounter Summary ---
Author Organization [facility] Address [address] [place] [address] Care Team Providers Care Diamond Sizer And Sorter Name Role Phone Unavailable Primary Care Provider Unavailabl e Encounter Details Date Type Department Care Team (Latest Contact Info) Description 06/27/1997 Outpatient Historical [facility] [place] Cedric Persaud Karlee [address] 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
--- OUTSIDE RECORDS SUMMARY | 2025-01-16 13:26 | XMS_ITS | Encounter Summary ---
Author Organization [facility] Address [address] [place] [address] Care Team Providers Care Fisher Crab Name Role Phone Unavailable Primary Care Provider Unavailabl e Encounter Details Date Type Department Care Team (Late st Contact Info) Description 06/27/1997 Outpatient Historical [facility] OBLILLIANN-Cedric Coburnnn Karlee [address] [place] [phone] Social History Tobacco Use Types Packs/Day Years Used Date Smoking Tobacco: Never Assessed Comments Unknown Sex and Gender Information Value Date Recorded Sex Assigned at Not on file Legal Sex Female 6:38 AM EPIC INTERFACE 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
--- OUTSIDE RECORDS SUMMARY | 2025-01-16 13:26 | XMS_ITS | Encounter Summary ---
Author Organization [facility] Address [address] [place] [address] Care Team Providers Care Rag Willow Operator Name Role Phone Unavailable Primary Care Provider Unavailabl e Encounter Details Date Type Department Care Team (Late st Contact Info) Description 04/26/[address] 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
--- NOTE | 2025-01-16 14:00 | ED_ITS ---
HPI - Seizure 2 General: Chief Complaint: Seizure Stated Complaint: re-turn Time Seen by Provider: 01/16/25 14:00 History of Present Illness: HPI Narrative: 79-year-old female returns to the emerge ncy room with reports of a seizure. She was seen earlier today by report already received from EMS was that she had found been found in the hallway down and they presumed that she had fell. She was brought to the emergency room she had a CT of her head and her neck she had no other reported symptoms or apparent problems she was discharged back to the long term with family member and route back she was observed having a seizure and she return to the emergency room she had another seizure after arriving here. Family member at the bedside at the second visit informs us that a year ago she had some seizures had an extensive cardiac workup in 2 EEGs both which were negative ultimately they decided not to place her on any medications she did see a neurologist in [place] at that time. She denies any other problems or injuries. Associated symptoms: Deny chest pain, chills or fever(s) Related Data Home Medications ?Medication ?Instructions ?Recorded ?Confirmed donepezil 5 mg tablet 5 mg PO QPM 01/16/25 5 vitamin B complex-folic acid 400 1 cap PO DAILY 01/16/25 mcg capsule Previous Rx's ?Medication ?Instructions ?Recorded escitalopram oxalate 10 mg tablet 10 mg PO DAILY #30 t abs 07/19/22 (Lexapro) metoprolol succinate 50 mg See Rx Instructions .Route 11/21/22 tablet,extended release 24 hr .COMPLEX #90 tabs metoprolol succinate 25 mg See Rx Instructions .Route 04/04/23 tablet,extended release 24 hr .COMPLEX #90 tabs levetiracetam 500 mg tablet 500 mg PO BID #60 tabs 06/11 (Keppra) Allergies Allergy/AdvReac Type Severity Reaction Status Date / Time No Known Allergies Allergy Verified 09/18/23 16:16 Review of Systems 2 Const: Denies: fever(s) or chills Card: Denies: chest pain Resp: Denies: dyspnea GI: Denies: abdominal pain : Denies: dysuria, urinary frequency or urinary urgency Musc: Denies: neck pain or back pain Skin/Breast: Denies: rash PFSH ED 2 PFSH: Medical History Anxiety Depression Hypertension Surgical History History of appendectomy Hx of tonsillectomy Hx of hysterectomy S/P foot surgery, left excision of mass Family History Mother Cancer Sister Cancer Brother Cancer Father Heart disease Denies family history of Diabetes CAD (coronary artery disease) Clotting disorder Dementia Hyperlipidemia Psychiatric illness Chronic kidney disease (CKD) Suicide Anesthesia complication Bleeding disorder Family history of premature coronary artery disease Lung disease Hypertension Stroke Social History Smoking and tobacco/nicotine status: never used tobacco/nicotine Alcohol intake: never Substance/Drug Use: never Current occupational status: retired Physical Exam 2 Const: GENERAL APPEARANCE: cooperative ORIENTATION/CONSCIOUSNESS: Yes awake, Yes oriented to person, Yes oriented to place and Yes oriented to time HENMT: COMMON NORMALS: normocephalic, atraumatic and hearing grossly normal bilaterally HEAD & SCALP: normocephalic and atraumatic Resp: COMMON NORMALS: normal respiratory effort, No retractions, No use of accessory muscles and clear to auscultation bilaterally AUSCULTATION: clear to auscultation bilaterally Cardio: COMMON NORMALS: regular rate, regular rhythm and No murmurs present (Cardio) RATE: regular rate RHYTHM: regular rhythm GI: COMMON NORMALS: Soft to palpation and No hepatosplenomegaly present A USCULTATION: Yes normoactive bowel sounds PALPATION: Yes Soft to palpation, No Tenderness to palpation present (GI), No Guarding due to palpation present (GI) and Yes No hepatosplenomegaly present Extremity: COMMON NORMALS: normal to inspection, capillary refill normal, no clubbing, cyanosis or edema, no calf tenderness and no pedal edema Neuro: SENSORIUM/ORIENTATION: Yes oriented to person, Yes oriented to place and Yes oriented to time Skin: COMMON NORMALS: no rashes or lesions noted GENERAL SKIN EXAM: no rashes or lesions noted Course 2 Vital Signs: Vital signs: Vital Signs Temperature 98.0 F 01/16/25 13:24 Pulse Rate 80 01/16/25 17:47 Respiratory Rate 21 H 01/16/25 14:11 Blood Pressure 150/89 01/16/25 17:47 Pulse Oximetry 91 01/16/25 17:47 Oxygen Delivery Me thod Room Air 01/16/25 17:30 Oxygen Flow Rate 2 01/16/25 16:18 MDM - Seizure MDM Narrative Medical decision making narrative: Patient did have couple of brief episodes of hypoxia they were associated with sleep. She does not have a known history of sleep apnea but when she is awake her saturations remain normal. Chest x-ray was done was also normal. Patient has previously seen neurology called and discussed with her neurologist from [place] that she has seen in the past. Recommend starting Keppra 500 mg at night for the next 3 days then increase to 500 twice daily does not recommend a loading IV dose at this time return if he has further problems. Remainder labs and imaging reviewed no significant findings noted. Lab Data Attestation: I reviewed the patient's lab results. 01/16/25 14:01 01/16/25 14:01 Labs: Radiology Impressions Head CT 01/16/25 14:01 IMPRESSION: No acute intracranial hemorrhage or mass effect. Left parietal scalp contusion/hematoma is present. Chest X-Ray 01/16/25 16:18 IMPRESSION: No acute cardiopulmonary abnormality. Laboratory Results WBC 13.99 10^3/uL (3.29-11.43) H 01/16/25 14:01 RBC 4.97 10^6/uL (3.85-5.65) 01/16/25 14:01 Hgb 13.70 g/dL (11.27-16.99) 01/16/25 14:01 Hct 44.1 % (36-47) 01/16/25 14:01 MCV 88.7 fl (85-98) 01/16/25 14:01 MCH 27.6 pg (27-33) 01/16/25 14:01 MCHC 31.1 g/dL (30-55) 01/16/25 14:01 RDW 13.2 % (12.1-15.1) 01/16/25 14:01 Plt Count 253 10^3/cmm (157-399) 01/16/25 14:01 MPV 11.2 fL (7.4-10.4) H 01/16/25 14:01 Neut % (Auto) 84.5 % 01/16/25 14:01 Lymph % (Auto) 9.1 % 01/16/25 14:01 [place] % (Auto) 4.1 % 01/16/25 14:01 Eos % (Auto) 0.9 % 01/16/25 14:01 Baso % (Auto) 0.5 % 01/16/25 14:01 Neut # (Auto) 11.84 10^3/uL (1.8-7.7) H 01/16/25 14:01 Lymph # (Auto) 1.3 10^3/uL (0.8-4.8) 01/16/25 14:01 [place] # (Auto) 0.6 10^3/uL (0.2-0.9) 01/16/25 14:01 Eos # (Auto) 0.1 10^3/uL (0.0-0.8) 01/16/25 14:01 Baso # (Auto) 0.1 10^3/uL (0.0-0.1) 01/16/25 14:01 Nucleated RBC % (auto) 0 % 01/16/25 14:01 Nucleated RBCs # 0.0 /100WBC 01/16/25 14:01 Sodium 142 mmol/L (136-145) 01/16/25 14:01 Potassium 3.6 mmol/L (3.5-5.1) 01/16/25 14:01 Chloride 104 mmol/L (98-107) 01/16/25 14:01 Carbon Dioxide 26 mmol/L (22-29) 01/16/25 14:01 Anion Gap 15.6 (5-19) 01/16/25 14:01 BUN 11 mg/dL (8-23) 01/16/25 14:01 Creatinine 0.5 mg/dL (0.5-0.9) 01/16/25 14:01 GFR Calculation Not Reportable 01/16/25 14:01 Glucose 131 mg/dL (65-115) H 01/16/25 14:01 Calculated Osmolality 295 mOsm/kg (285-295) 01/16/25 14:01 Lactic Acid 2.0 mmol/L (0.5-2.2) 01/16/25 14:01 Calcium 9.0 mg/dL (8.5-10.5) 01/16/25 14:01 Total Bilirubin 0.3 mg/dL (0.15-1.2) 01/16/25 14:01 AST 25 U/L (0-32) 01/16/25 14:01 ALT 16 U/L (0-33) 01/16/25 14:01 Alkaline Phosphatase 105 U/L (35-105) 01/16/25 14:01 Creatine Kinase 70 U/L (26-192) 01/16/25 14:01 Total Protein 7.1 g/dL (6.6-8.7) 01/16/25 14:01 Albumin 4.3 g/dL (3.5-5.2) 01/16/25 14:01 Globulin 2.8 g/dL (1.3-4.6) 01/16/25 14:01 Urine Color Yellow (Yellow) 01/16/25 15:16 Urine Appearance Clear (CLEAR) 01/16/25 15:16 Urine pH 6.5 (5-7) 01/16/25 15:16 Ur Specific Carrie 1.013 (1.005-1.030) 01/16/25 15:16 Urine Protein Negative (Negative) 01/16/25 15:16 Urine Glucose (UA) Negative (Normal) 01/16/25 15:16 Urine Ketones Negative (Negative) 01/16/25 15:16 Urine Blood Negative (Negative) 01/16/25 15:16 Urine Nitrate Negative (Negative) 01/16/25 15:16 Urine Bilirubin Negative (Negative) 01/16/25 15:16 Urine Urobilinogen 0.2 mg/dL (Negative) 01/16/25 15:16 Ur Leukocyte Esterase Negative (Negative) 01/16/25 15:16 Amorphous Sediment Not Reportable 01/16/25 15:16 All radiology interpretation(s) finalized by discharge EKG Data EKG 1: Attestation: I personally reviewed and interpreted this EKG as follows: EKG interpretation date: 01/16/25 Interpretation: EKG 01/16/2025 1059 sinus bradycardia rate of 57 parable 160 QTc 427 no acute EKG changes noted compared to EKG from 09/02/2022 EKG 2: Attestation: I personally reviewed and interpreted this EKG as follows: EKG interpretation date: 01/16/25 Prior EKG tracings: available for review Interpretation: EKG 01/16/2025 1407 normal sinus bradycardia rate of 66 parable 172 QTc [address] changes noted. No changes from EKG done earlier same day Discharge Plan Discharge Patient Disposition: Home Clinical Impression: Generalized seizure Moderate Alzheimer's dementia Qualifiers: Alzheimer's disease onset: late onset Dementia behavioral or psychological symptom: without behavioral, psychotic, or mood disturbance or anxiety Qualified Code(s): G30.1 - Alzheimer's disease with late onset Condition: Stable Prescriptions: New levetiracetam [Keppra] 500 mg tablet 500 mg PO BID Qty: 60 0RF Rx Instructions: 1 tablet at night x 3 days then 1 tablet twice a day No Action escitalopram oxalate [Lexapro] 10 mg tablet 10 mg PO DAILY Qty: 30 11RF metoprolol succinate 50 mg tablet extended release 24 hr See Rx Instructions .ROUTE .COMPLEX Qty: 90 3RF Dose Instruction: Take 1 tablet by mouth once daily Rx Instructions: Take 1 tablet by mouth once daily metoprolol succinate 25 mg tablet extended release 24 hr See Rx Instructions .ROUTE .COMPLEX Qty: 90 3RF Dose Instruction: TAKE 1 TABLET BY MOUTH ONCE DAILY AT NIGHT Rx Instructions: TAKE 1 TABLET BY MOUTH ONCE DAILY AT NIGHT donepezil 5 mg tablet 5 mg PO QPM vitamin B complex-folic acid 400 mcg Capsule 1 cap PO DAILY Discharge Orders: Discharge ED (Routine); Ordered 01/16/25 Ordered By: Chase Marino Referrals: Mark Lyman DO [Primary Care Provider, Family Practice] Discharge Diet: Usual diet Discharge Activity: Increase activity as tolerated Patient Instructions: Opioid Safety, Pain Management, Patient Portal & [place] Instructions Activity Restrictions/Additional Instructions: Thank you for choosing [facility] for your healthcare needs today. It is very important that you follow up as instructed or that you return to the Emergency Department should you have concerns or if your condition changes or worsens in any way. Emergency department visits are focused on emergent conditions, in some cases you may require further evaluation on an outpatient basis. You are seen in the emergency room after another episode of seizure. We discussed your case with the neurologist who had seen you previously he is recommending at this time that you begin Keppra 500 mg at night for 3 nights then increase to 1 tablet twice a day. We should call his office to set up a follow-up appointment. If there are more seizures return to the emergency room to reevaluate. (Please note that included in your discharge packet is information concerning opioid safety and pain management. This information is given to all patients were discharged from the ER regardless of their discharge diagnosis or the medicines they usually take or are prescribed.) Print Language: Hong Konger Coding Level of Care Code ED Wireless Sales Expert for Pastor Barrientos
--- NOTE | 2025-01-16 14:01 | CTR_ITS ---
PROCEDURE INFORMATION: Exam: CT Head Without Contrast Exam date and time: 01/16/2025 2:49 PM Age: 79 years old Clinical indication: Injury or trauma; Blunt trauma (contusions or hematomas); Consciousness not specified; Injury details: Trauma; Unwitnessed fall at nursing facility; Limited HX due to PT confusion; Additional info: Closed head injury TECHNIQUE: Imaging protocol: Computed tomography of the head without contrast. Radiation optimization: All CT scans at this facility use at least one of these dose optimization techniques: automated exposure control; mA and/or kV adjustment per patient size (includes targeted exams where dose is matched to clinical indication); or iterative reconstruction. COMPARISON: CT head wo con* [id number] 01/16/2025 10:41 AM RADIATION DOSE METRICS: Total DLP (mGy-cm): 1063.88 FINDINGS: Brain: No acute intracranial hemorrhage or abnormal intracranial mass effect is identified. Very mild chronic appearing small-vessel ischemic changes, not unusual for age. No subdural collections are seen. Cerebral ventricles: Size within normal range for age. No midline shift. Paranasal sinuses: Visualized portions of paranasal sinuses are well aerated. Mastoid air cells: Visualized portions of mastoid sinuses are not opacified. Bones: No obvious fracture of the cranium. Soft tissues: Left parietal scalp contusion/hematoma is present. CT/CT head wo con* [id number] IMPRESSION: No acute intracranial hemorrhage or mass effect. Left parietal scalp contusion/hematoma is present.
--- NOTE | 2025-01-16 14:01 | ECG_ITS ---
[facility] Date: 2025-01-16 Pat Name: Adeline Prabhakar Department: Room: Gender: Female Seconds Handler: : 1945 Requested By: Chase Sadler Order Number: [id number] Emigdio MD: Aman Yates M.D. Measurements Intervals [place] Rate: 66 P: 50 [place]: 172 QRS: -3 QRSD: 96 T: 29 QT: 429 QTc: 450 Interpretive Statements SINUS RHYTHM Compared to ECG 01/16/2025 10:59:27 Sinus bradycardia no longer present Electronically Signed On 01-16-2025 17:13:35 CDT by Aman Yates M.D. [email or web address]
[2025-01-16 14:10] LABS: Hematocrit 44.1 % (36-47); Hemoglobin 13.70 g/dL (11.27-16.99); Mean Corpuscular HGB Conc 31.1 g/dL (30-55); Mean Corpuscular Hemoglobin 27.6 pg (27-33); Mean Corpuscular Volume 88.7 fl (85-98); Nucleated Red Blood Cells % 0 %; Platelet Count 253 10^3/cmm (157-399); Red Blood Count 4.97 10^6/uL (3.85-5.65); White Blood Count 13.99 10^3/uL (3.29-11.43)
[2025-01-16 14:35] LABS: Lactic Sepsis W/Reflex 2.0 mmol/L (0.5-2.2)
[2025-01-16 14:36] LABS: Alanine Aminotransferase 16 U/L (0-33); Albumin Level 4.3 g/dL (3.5-5.2); Alkaline Phosphatase 105 U/L (35-105); Anion Gap 15.6 (5-19); Aspartate Amino Transferase 25 U/L (0-32); Blood Urea Nitrogen 11 mg/dL (8-23); Calcium 9.0 mg/dL (8.5-10.5); Carbon Dioxide 26 mmol/L (22-29); Chloride 104 mmol/L (98-107); Creatinine Clr Calc Pharmacy 58.2592; Globulin 2.8 g/dL (1.3-4.6); Glucose 131 mg/dL (65-115); Osmolality Calculated 295 mOsm/kg (285-295); Potassium 3.6 mmol/L (3.5-5.1); Sodium 142 mmol/L (136-145); Total Protein 7.1 g/dL (6.6-8.7)
[2025-01-16 15:24] LABS: Add Urine Microscopic? NO
[2025-01-16 15:26] LABS: Glucose Urine UA Negative (Normal); Nitrate Urine Negative (Negative); Specific Gravity, Urine 1.013 (1.005-1.030)
[2025-01-16 15:29] LABS: Charge for UA Resulting for Rev
--- NOTE | 2025-01-16 16:18 | XRR_ITS ---
PROCEDURE INFORMATION: Exam: XR Chest Exam date and time: 01/16/2025 4:36 PM Age: 79 years old Clinical indication: Other: Hypoxia TECHNIQUE: Imaging protocol: Radiologic exam of the chest. Views: 1 view. COMPARISON: CR XR chest 1V portable [id number] 09/02/2022 9:10 PM FINDINGS: Lungs: Unremarkable. No consolidation. Pleural spaces: Unremarkable. No pleural effusion. No pneumothorax. Heart/Mediastinum: Unremarkable. No cardiomegaly. Bones/joints: Unremarkable. XR/XR chest 1V portable [id number] IMPRESSION: No acute cardiopulmonary abnormality.
== END 2025-01-16 18:15 | disposition home or self-care (01) ==
PROVIDERS: Emergency Provider Family Medicine; PCP Family Medicine
DX: G40.89 Other seizures (principal); G30.1 Alzheimer's disease with late onset; I10 Essential (primary) hypertension
CPT/HCPCS: 70450; 71045; 80053; 81003; 82550; 83605; 85025; 93005; 99285